=== PATIENT | female | born 1950 | race Caucasian/White ===

== ENCOUNTER 2019-07-22 17:44 | Inpatient (IN) | payer OTHER ==
--- NOTE | 2019-07-22 18:12 | PDOC ---
Attending Attestation - Resident Resident Name: Gibran Mosley - ED Attending Attestation I have performed the following: I have examined & evaluated the patient, The case was reviewed & discussed with the resident, I agree w/resident's findings & plan, Exceptions are as noted - HPI HPI: 07/22/19 18:49 this pt came with son from home because he found her diaphoretic and sl lethargic - Physicial Exam PE: 07/22/19 18:50 wnwd 69 yo female p/w tachycardia,hypotension head ncat eyes mateusz eomi neck no bruits lungs no wheezing,no rales cvs tachycardia abd protuberant skin warm and dry ext no deformities,no erythema neuro alert and conversant,Estonian speaking 07/22/19 20:19 - Medical Decision Making 07/22/19 18:52 HPI: pt has diaphoresis,chills, and confusion at home PMH HTN.psych 07/22/19 19:00 PSH tubal ligation last hospitalization was for psych issues Meds Seroquel, risperidone, hydrochlorothiazide, benztropine 07/22/19 20:02 rectal temp 99.1 07/22/19 20:03 ekg tachycardia =113 bpm 07/22/19 20:04 pt is afebrile,tachycardic w elevated TSH levels, will add free T4,T3 levels. normal lactic acid level, creatinine=2 07/22/19 20:19 07/22/19 21:28 pts vital signs improved with IV fluids, her blood pressure 137/76 , pulse ox= 98% on room air ,pulse has come down to 100 bpm 07/22/19 21:34 Diff Diagnosis: includes dehydration,hyperthyroidism / pt admitted 07/22/19 22:34
[2019-07-22] MEDS ORDERED: SODIUM CHLORIDE 0.9% 500 ML INFUS.BAG IV ONE (18:37)
[2019-07-22] MEDS ORDERED: SODIUM CHLORIDE 1,000 ML IV STA ×2 (19:08→21:09)
[2019-07-22 19:11] LABS: BASO % 0.7 % (0-2.0); EOS % 0.1 % (0-4.5); HEMATOCRIT 45.4 % (32.4-45.2); HEMOGLOBIN 14.9 GM/dL (10.7-15.3); LYMPH % 13.9 % (8-40); MCHC 32.9 g/dl (32.0-36.0); MEAN CELL VOLUME 88.2 fl (80-96); MEAN PLT VOLUME 9.3 fl (7.5-11.1); MONO % 8.9 % (3.8-10.2); NEUT % 76.4 % (42.8-82.8); PLATELET COUNT 264 K/MM3 (134-434); RBC 5.14 M/mm3 (3.60-5.2); RDW 13.8 % (11.6-15.6); WHITE BLOOD COUNT 11.1 K/mm3 (4.0-10.0)
[2019-07-22 19:41] LABS: INR 1.04 (0.83-1.09); PROTHROMBIN TIME (PATIENT) 12.3 SEC (9.7-13.0)
[2019-07-22 19:44] LABS: ACTIVATED PTT 32.4 SECONDS (25.2-36.5); MAGNESIUM 2.1 mg/dL (1.8-2.4); PHOSPHOROUS 3.1 mg/dL (2.5-4.9)
[2019-07-22 19:53] LABS: ALBUMIN 4.2 g/dl (3.4-5.0); BILIRUBIN,TOTAL 0.4 mg/dL (0.2-1); CALCIUM 9.9 mg/dL (8.5-10.1); POTASSIUM 5.6 mmol/L (3.5-5.1); TOT PROT 8.2 g/dl (6.4-8.2)
--- NOTE | 2019-07-22 19:58 | PDOC ---
History of Present Illness - General Chief Complaint: Lethargy Stated Complaint: HYPERGLYCEMIA Time Seen by Provider: 07/22/19 18:08 History Source: Patient Exam Limitations: No Limitations - History of Present Illness Initial Comments: 07/22/19 19:56 HPI: 69yo F with PMH HTN and psychiatric illess presenting 1hour after transient episode of extreme diaphoresis / weakness / visual disturbance that resolved spontaneously. Patient has experienced one similar episode of these symptoms approximately 4 months ago. EMS was called, BP was normal and patient asymptomatic on their arrival so she did not present to the ED. Today, she was found to have a BGM 189, tachycardia, and hypotension. Her symptoms had largely resolved by the time EMS arrived. Her son reports that she was profusely diaphoretic and soaked through her shirt. Patient reports her hair is dry, she has been gaining weight, and feels cold all the time. Denies any recent travel, illness, CP, SOB, fever, chills, pain, weakness, urinary symptoms, changes in BMs, no bloody or dark BMs, no numbness or tingle. Son who was with pt at time of episode says she knew who she was and where she was but looked off in her eyes - only noted the diaphoresis. Never lost consciousness or had facial muscle changes. All: Flagyl > hives Meds: -Rispiridone -Seroquel -Hydrochlorothyazide -Bcomplex -Benztropine -Paxil -MVI PMH: as above PSH: remote hysterectomy SHx: denies smoking / etoh / illicits Past History - Travel Traveled outside of the country in the last 30 days: No Close contact w/someone who was outside of country & ill: No - Past Medical History Allergies/Adverse Reactions: Allergies Allergy/AdvReac Type Severity Reaction Status Date / Time metronidazole [From Flagyl] Allergy Verified 07/22/19 17:55 Home Medications: Ambulatory Orders Hydrochlorothiazide [Hctz -] 25 mg PO DAILY 07/22/19 Quetiapine Fumarate [Quetiapine Fumarate ER] 50 mg PO DAILY 07/22/19 Risperidone [Risperdal] 3 mg PO DAILY 07/22/19 Benztropine Mesylate 1 mg PO DAILY 07/23/19 COPD: No Diabetes: Yes HTN: Yes Psychiatric Problems: Yes (DEPRESSION) - Suicide/Smoking/Psychosocial Hx Smoking History: Never smoked Information on smoking cessation initiated: No Hx Alcohol Use: No Drug/Substance Use Hx: No Review of Systems - Review of Systems Able to Perform ROS?: Yes Is the patient limited Guyanese proficient: Yes Constitutional: Yes: See HPI, Diaphoresis, Weakness. No: Chills, Fever, Malaise , Night Sweats, Weight Stable HEENTM: Yes: See HPI, Blurred Vision. No: Nose Congestion, Hearing Loss, Throat Pain, Throat Swelling, Mouth Pain Respiratory: No: Cough, Shortness of Breath, Wheezing, Hemoptysis Cardiac (ROS): No: Chest Pain, Edema, Irregular Heart Rate, Palpitations, Syncope, Chest Tightness ABD/GI: No: Blood Streaked Bowels, Constipated, Diarrhea, Nausea, Poor Appetite , Poor Fluid Intake, Vomiting, Tarry Stools : No: Burning, Dysuria, Discharge, Frequency, Pain Musculoskeletal: No: Back Pain, Joint Pain, Muscle Pain, Muscle Weakness Integumentary: No: Bruising, Erythema, Pruritus, Rash Neurological: No: Headache, Numbness, Tingling, Weakness Endocrine: Yes: See HPI, Excessive Sweating, Flushing, Intolerance to Cold, Increased Thirst, Unexplained Weight Gain, Change in Weight. No: Increased Urine Hematologic/Lymphatic: No: Anemia, Blood Clots, Easy Bleeding, Easy Bruising All Other Systems: Reviewed and Negative *Physical Exam - Vital Signs Last Vital Signs Temp Pulse Resp BP Pulse Ox 99.3 F 111 H 18 90/55 L 99 07/22/19 18:34 07/22/19 18:34 07/22/19 18:34 07/22/19 18:34 07/22/19 18:34 - Physical Exam Comments: 07/22/19 20:53 Vitals reviewed, notable for hypotension and tachycardia, patient afebrile orally and rectally Gen: obese woman, laying in bed, no acute distress, cooperative HEENT: NCAT, EOMI, MMM, trachea midline, normal morphologies CV: RRR, nl s1/s2, no murmurs appreciated Pulm: CTABL, normal work of breathing, no wheezes / rales / rhonchi Abd: Soft, nontender, nondistended, obese Ext: Cool, good pulses radial and PT, no clubbing / cyanosis / edema Neuro: alert and oriented, CN 2-12 grossly intact, MAEE, normal gait ED Treatment Course - LABORATORY CBC & Chemistry Diagram: 07/23/19 06:05 07/23/19 06:05 - ADDITIONAL ORDERS Additional order review: Laboratory Results 07/22/19 07/22/19 07/22/19 18:49 18:49 18:49 PT with INR INR PTT (Actin FS) Sodium 137 Potassium 5.6 H Chloride 100 Carbon Dioxide 26 Anion Gap 11 BUN 16.0 Creatinine 2.0 H Est GFR (CKD-EPI)AfAm 28.80 Est GFR (CKD-EPI)NonAf 24.85 POC Glucometer Random Glucose 132 H Lactic Acid 1.8 Calcium 9.9 Phosphorus 3.1 Magnesium 2.1 Total Bilirubin 0.4 AST 126 H ALT 203 H Alkaline Phosphatase 88 Troponin I Total Protein 8.2 Albumin 4.2 TSH 7.17 H 07/22/19 07/22/19 07/22/19 18:49 18:49 18:09 PT with INR 12.30 INR 1.04 PTT (Actin FS) 32.4 Sodium Potassium Chloride Carbon Dioxide Anion Gap BUN Creatinine Est GFR (CKD-EPI)AfAm Est GFR (CKD-EPI)NonAf POC Glucometer 145 Random Glucose Lactic Acid Calcium Phosphorus Magnesium Total Bilirubin AST ALT Alkaline Phosphatase Troponin I < 0.02 Total Protein Albumin TSH 07/22/19 07/22/19 18:49 18:09 RBC 5.14 MCV 88.2 MCHC 32.9 RDW 13.8 MPV 9.3 Neutrophils % 76.4 Lymphocytes % 13.9 Monocytes % 8.9 Eosinophils % 0.1 Basophils % 0.7 POC Glucometer 145 - RADIOLOGY Radiology Studies Ordered: Category Date Time Status CHEST X-RAY PORTABLE* [RAD] Stat Radiology 07/22/19 18:34 Taken - Medications Given in the ED: ED Medications Discontinued Medications Generic Name Dose Route Start Last Admin Trade Name Freq PRN Reason Stop Dose Admin Sodium Chloride 1,000 ml 07/22/19 18:37 07/22/19 19:06 Normal Saline - IV 07/22/19 18:38 1,000 ml ONCE ONE Administration Medical Decision Making - Medical Decision Making 07/22/19 19:45 69yo F with PMH HTN and psychiatric illess presenting 1hour after transient episode of extreme diaphoresis / weakness / visual disturbance that resolved spontaneously. History notable for symptoms of hypothyroidism and two episodes of an apparent sympathetic surge. Vitals tachycardic and hypotensive on arrival , afebrile (rectal). Patient asymptomatic in the department. Exam notable for cool extremities. Concerning for unexplained sympathetic surge, undiagnosed ? hypothyroidism, diabetes (Glu 189), r/o ACS, electrolytes, dehydration, symptoms of hypotension. Patient and family requesting referral to PCP and endocrine in [facility] due to close proximity to home. -Sepsis order set -Starting with 1L IVF given unclear cardiac history -CXR, EKG -TSH (will reflex T3/T4 if necessary) -Rispiridone, Benztropine levels 07/22/19 20:05 -EKG with tachycardia, normal axis, normal intervals, no peaked T waves, no ischemic changes -Portable CXR with ?mediastinum, patient stable enough for PA/LAT 07/22/19 21:00 -No leukocytosis or anemia -K elevated to 5.6 (patient asymptomatic, EKG normal, IVF running) -NANCY vs CKD with 2.0Cr - patient with no known renal Hx -TSH 7.17 - T3 T4 added on -Additional L bolus ordered -Dispo planning - likely admit for NANCY, hypothyroidism, ?dehydration 07/22/19 21:41 -Repeat pressure 137/76, HR 100 after 1L IVF -Pt endorsed to Hospitalist team Dispo: Med/Surg *DC/Admit/Observation/Transfer Diagnosis at time of Disposition: NANCY (acute kidney injury) Hypothyroidism Qualifiers: Hypothyroidism type: unspecified Qualified Code(s): E03.9 - Hypothyroidism, unspecified - Discharge Dispostion Condition at time of disposition: Guarded - Referrals - Patient Instructions - Post Discharge Activity
[2019-07-22 20:14] LABS: EPI CELLS 7.2 /HPF (0-5/HPF); HYALINE CASTS 108 /lpf (0-8); URINE APPEARANCE TURBID; URINE BACTERIA 1807.1 /hpf (NEGATIVE); URINE BILIRUBIN 1+ (NEGATIVE); URINE COLOR DK YELLOW; URINE GLUCOSE (UA) NEGATIVE (NEGATIVE); URINE KETONE TRACE (NEGATIVE); URINE LEUK ESTERASE 1+ (NEGATIVE); URINE NITRITE NEGATIVE (NEGATIVE); URINE PROTEIN 2+ (NEGATIVE); URINE UROBILINOGEN 0.2 mg/dL (0.2-1.0); URINE WBC 92 /hpf (0-5)
[2019-07-22 20:32] LABS: URINE RBC 0-4 /hpf (0-4)
--- NOTE | 2019-07-22 22:34 | HP ---
CHIEF COMPLAINT: transient diaphoresis and autonomic symptoms PCP: None HISTORY OF PRESENT ILLNESS: relatives as historians 69 y/o Female with PMH of HTN and schizophrenia who presented to the ED because of episodes of extreme diaphoresis, weakness, visual changes (seeing black and white spots), confusion, and cold extremities that last for a few then resolves. As per son, 4 months ago, she experienced a similar phenomenon that resolved in the EMS resulting in her not coming to the ED. However today, the EMS found her blood glucose to be 189, tachycardic, hypotensive so they brought her to the ED despite symptom resolution.Pt endorsed weight gain, hair thinning , but no brittle nails. Pt admits to recently dieting so she has not been eating alot nor drinking alot of water. Pt denied any change in headache, SOB, chest pain, numbness and tingling during episode. Pt also denied change in appetite, bowel movement and no recent change in her medications. Pt endorsed some abdominal pain in the suprapubic region. ER course was notable for: (1) 3 boluses of NS for the hypotension (2)EKg significant only for tachycardia (3) CXR, UA positive for UTI 2+protein, 1+ jorge a, 1+ leukocyte est, 92 WBC Recent Travel: None PAST MEDICAL HISTORY: as noted above PAST SURGICAL HISTORY: Tubal ligation Social History: Smoking: year ago but alot ( son remembers her always with a cigarette in hand) Alcohol:denies Drugs: denies Allergies metronidazole [From Flagyl] Allergy (Verified 07/22/19 17:55) HOME MEDICATIONS: Home Medications Medication Instructions Recorded Hydrochlorothiazide [Hctz -] 25 mg PO DAILY 07/22/19 Quetiapine Fumarate [Quetiapine 50 mg PO 07/22/19 Fumarate ER] Risperidone [Risperdal] 3 mg PO 07/22/19 REVIEW OF SYSTEMS CONSTITUTIONAL: weight gain Absent: fever, chills, diaphoresis, generalized weakness, malaise, loss of appetite, HEENT: visual changes Absent: rhinorrhea, nasal congestion, throat pain, throat swelling, difficulty swallowing, mouth swelling, ear pain, eye pain, CARDIOVASCULAR: Absent: chest pain, syncope, palpitations, irregular heart rate, lightheadedness , peripheral edema RESPIRATORY: Absent: cough, shortness of breath, dyspnea with exertion, orthopnea, wheezing, stridor, hemoptysis GASTROINTESTINAL:abdominal pain Absent: , abdominal distension, nausea, vomiting, diarrhea, constipation, melena , hematochezia GENITOURINARY: Absent: dysuria, frequency, urgency, hesitancy, hematuria, flank pain, genital pain MUSCULOSKELETAL: Absent: myalgia, arthralgia, joint swelling, back pain, neck pain SKIN: hyper and hypo pigmented skin on face and arms Absent: rash, itching, pallor HEMATOLOGIC/IMMUNOLOGIC: Absent: easy bleeding, easy bruising, lymphadenopathy, frequent infections ENDOCRINE: Absent: unexplained weight gain, unexplained weight loss, heat intolerance, cold intolerance NEUROLOGIC: Absent: headache, focal weakness or paresthesias, dizziness, unsteady gait, seizure, mental status changes, bladder or bowel incontinence PSYCHIATRIC: Absent: anxiety, depression, suicidal or homicidal ideation, hallucinations. PHYSICAL EXAMINATION Vital Signs - 24 hr 07/22/19 07/22/19 07/22/19 17:48 18:20 18:34 Temperature 97.4 F L 98.1 F 99.3 F Pulse Rate 117 H 112 H Pulse Rate [ 111 H 111 H Apical] Respiratory 18 20 18 Rate Blood Pressure 89/49 L Blood Pressure 90/55 L 90/55 L [Left Arm] O2 Sat by Pulse 99 99 99 Oximetry (%) 07/22/19 07/22/19 19:15 20:03 Temperature 99.0 F Pulse Rate Pulse Rate [ 111 H 104 H Apical] Respiratory 22 H 19 Rate Blood Pressure Blood Pressure 84/57 L 97/62 [Left Arm] O2 Sat by Pulse 98 99 Oximetry (%) GENERAL: Awake, alert, and fully oriented, in no acute distress. HEAD: Normal with no signs of trauma. EYES: Pupils equal, round and reactive to light, extraocular movements intact, sclera anicteric, conjunctiva clear. No lid lag. EARS, NOSE, THROAT: Ears normal, nares patent, oropharynx clear without exudates. Moist mucous membranes. NECK: Normal range of motion, supple without lymphadenopathy, JVD, or masses. LUNGS: Breath sounds equal, clear to auscultation bilaterally. No wheezes, and no crackles. No accessory muscle use. HEART: Regular rate and rhythm, normal S1 and S2 without murmur, rub or gallop. ABDOMEN: Soft, nontender, not distended, normoactive bowel sounds, no guarding, no rebound, no masses. No hepatomegaly or splenomegaly. MUSCULOSKELETAL: Normal range of motion at all joints. No bony deformities or tenderness. No CVA tenderness. UPPER EXTREMITIES: 2+ pulses, warm, well-perfused. No cyanosis. No clubbing. No peripheral edema. LOWER EXTREMITIES: 2+ pulses, warm, well-perfused. No calf tenderness. No peripheral edema. NEUROLOGICAL: Cranial nerves II-XII intact. Normal speech. Normal gait. PSYCHIATRIC: Cooperative. Good eye contact. Appropriate mood and affect. SKIN: Warm, dry, normal turgor, no rashes or lesions noted, normal capillary refill. Laboratory Results - last 24 hr 07/22/19 07/22/19 07/22/19 18:09 18:49 18:49 WBC RBC Hgb Hct MCV MCH MCHC RDW Plt Count MPV Absolute Neuts (auto) Neutrophils % Lymphocytes % Monocytes % Eosinophils % Basophils % Nucleated RBC % PT with INR 12.30 INR 1.04 PTT (Actin FS) 32.4 Sodium Potassium Chloride Carbon Dioxide Anion Gap BUN Creatinine Est GFR (CKD-EPI)AfAm Est GFR (CKD-EPI)NonAf POC Glucometer 145 Random Glucose Lactic Acid Calcium Phosphorus Magnesium Total Bilirubin AST ALT Alkaline Phosphatase Troponin I < 0.02 Total Protein Albumin TSH Resin T3 Uptake Urine Color Urine Appearance Urine pH Ur Specific [place] Urine Protein Urine Glucose (UA) Urine Ketones Urine Blood Urine Nitrite Urine Bilirubin Urine Urobilinogen Ur Leukocyte Esterase Urine WBC (Auto) Urine RBC (Auto) Urine Casts (Auto) U Pathogenic Cast Auto U Epithel Cells (Auto) Urine Bacteria (Auto) 07/22/19 07/22/19 07/22/19 18:49 18:49 18:49 WBC 11.1 H RBC 5.14 Hgb 14.9 Hct 45.4 H MCV 88.2 MCH 29.0 MCHC 32.9 RDW 13.8 Plt Count 264 MPV 9.3 Absolute Neuts (auto) 8.5 H Neutrophils % 76.4 Lymphocytes % 13.9 Monocytes % 8.9 Eosinophils % 0.1 Basophils % 0.7 Nucleated RBC % 0 PT with INR INR PTT (Actin FS) Sodium 137 Potassium 5.6 H Chloride 100 Carbon Dioxide 26 Anion Gap 11 BUN 16.0 Creatinine 2.0 H Est GFR (CKD-EPI)AfAm 28.80 Est GFR (CKD-EPI)NonAf 24.85 POC Glucometer Random Glucose 132 H Lactic Acid 1.8 Calcium 9.9 Phosphorus Magnesium Total Bilirubin 0.4 AST 126 H ALT 203 H Alkaline Phosphatase 88 Troponin I Total Protein 8.2 Albumin 4.2 TSH 7.17 H Resin T3 Uptake Urine Color Urine Appearance Urine pH Ur Specific [place] Urine Protein Urine Glucose (UA) Urine Ketones Urine Blood Urine Nitrite Urine Bilirubin Urine Urobilinogen Ur Leukocyte Esterase Urine WBC (Auto) Urine RBC (Auto) Urine Casts (Auto) U Pathogenic Cast Auto U Epithel Cells (Auto) Urine Bacteria (Auto) 07/22/19 07/22/19 18:49 19:40 WBC RBC Hgb Hct MCV MCH MCHC RDW Plt Count MPV Absolute Neuts (auto) Neutrophils % Lymphocytes % Monocytes % Eosinophils % Basophils % Nucleated RBC % PT with INR INR PTT (Actin FS) Sodium Potassium Chloride Carbon Dioxide Anion Gap BUN Creatinine Est GFR (CKD-EPI)AfAm Est GFR (CKD-EPI)NonAf POC Glucometer Random Glucose Lactic Acid Calcium Phosphorus 3.1 Magnesium 2.1 Total Bilirubin AST ALT Alkaline Phosphatase Troponin I Total Protein Albumin TSH Resin T3 Uptake 30.5 Urine Color Dk yellow Urine Appearance Turbid Urine pH 5.0 Ur Specific [place] 1.025 Urine Protein 2+ H Urine Glucose (UA) Negative Urine Ketones Trace H Urine Blood Negative Urine Nitrite Negative Urine Bilirubin 1+ H Urine Urobilinogen 0.2 Ur Leukocyte Esterase 1+ H Urine WBC (Auto) 92 Urine RBC (Auto) 0-4 Urine Casts (Auto) 108 U Pathogenic Cast Auto Hyaline cast= few U Epithel Cells (Auto) 7.2 Urine Bacteria (Auto) 1807.1 ASSESSMENT/PLAN: 69 y/o Female with PMH of HTN and schizophrenia who presented to the ED because of episodes of extreme diaphoresis, weakness, visual changes (seeing black and white spots), confusion, and cold extremities that last for a few then resolves benztropine and risperidone levels pending Thyroid abnormality (hypothyroid? thyroiditis? central ?) TSH 7.17 and total T4 15.2 resin uptake T3 30.5. thyroid US ordered repeat free T4& T3, total T4 to reevaluate Sepsis poss 2/2 UTI UA +, urine culture ordered, blood cultures ordered WBC 11.1, HR 100, BP 137/76 s/p 3 boluses No abx at this time since asymptomatic CXR no acute pathology CKD ? Cr 2.o Bun 16. Pt nor family recalls any history of kidney disease NS @ 75cc/hr Holding hydrochlorothiazide for now Renal US ordered Transaminitis AST 126, ALT 203, ALP 88 Tbil 0.4 RUQ US ordered holding psych meds until med rec DVT Hep subQ Visit type - Emergency Visit Emergency Visit: Yes ED Registration Date: 07/22/19 Care time: The patient presented to the Emergency Department on the above date and was hospitalized for further evaluation of their emergent condition. - New Patient This patient is new to me today: Yes Date on this admission: 07/22/19 - Critical Care Critical Care patient: No ATTENDING PHYSICIAN STATEMENT I saw and evaluated the patient. I reviewed the resident's note and discussed the case with the resident. I agree with the resident's findings and plan as documented. SUBJECTIVE: OBJECTIVE: ASSESSMENT AND PLAN:
--- NOTE | 2019-07-22 23:15 | PN ---
Teaching Attending Note Name of Resident: Peace Scales ATTENDING PHYSICIAN STATEMENT I saw and evaluated the patient. I reviewed the resident's note and discussed the case with the resident. I agree with the resident's findings and plan as documented. SUBJECTIVE: 69 y/o Female with PMH of HTN and schizophrenia, gerd, htn presented with episodes of diaphoresis, weakness, thin hair, hot flashes for several days. She reports having gained about 30-40 lbs recently. Denied any nausea, vomiting, diarrhea. OBJECTIVE: Last Vital Signs Temp Pulse Resp BP Pulse Ox 99.0 F 96 H 16 143/70 99 07/22/19 20:03 07/22/19 22:17 07/22/19 22:17 07/22/19 22:17 07/22/19 22:17 gen -nad, nontoxic appearing heent -at, nc, clear sclera neck supple, thyroid nontender, not enlarged, no nodules palpated cv-s1+s2+rrr chest clear abdomen -soft, BS in 4 quadrants, ruq tenderness, +rossi sign, no rebound tenderness ext- no pedal edema appreciated Abnormal Lab Results 07/22/19 07/22/19 07/22/19 18:49 18:49 19:40 WBC 11.1 H Hct 45.4 H Absolute Neuts (auto) 8.5 H Potassium 5.6 H Creatinine 2.0 H Random Glucose 132 H AST 126 H ALT 203 H TSH 7.17 H Urine Protein 2+ H Urine Ketones Trace H Urine Bilirubin 1+ H Ur Leukocyte Esterase 1+ H ekg showed sinus tachycardia ASSESSMENT AND PLAN: generalized weakness diaphoresis with tight total t4 suggestive of hyeprthyroidism. High TSH suggests TSH induced hyperthyroidism. Total t4 not seen in lab value however discussed with chemistry lab and reported total t4 of 15.2mg/dl. Would repeat thyroid studies, tsh may also be acute phase reactant. Should also r/o illegal substance abuse (i.e. cocaine, methamphetamine). R/o pheochromocytoma. -send tsh, total, free t4, free t3 -thyroid ultrasound -propanalol prn for symptom management -if high repeat tsh, t4, would order brain MRI to evaluate for pituitary tumor -send urine VMA -urine toxicology screen -ck #History of schizophrenia - noted to be on 2 antipsychotics in med list- risperdal and seroquel -verify with pharmacy if actually on 2 different antipsychotics #Leukocytosis - monitor #GERD -start protonix #Transaminitis -liver u/s -etoh level -tylenol level -viral hepatitis panel -trend hepatic function panel dvt ppx
[2019-07-22] MEDS: SODIUM CHLORIDE 1,000 ML IV SCH (23:29)
[2019-07-23 06:24] LABS: BASO % 1.2 % (0-2.0); EOS % 0.4 % (0-4.5); HEMATOCRIT 39.6 % (32.4-45.2); HEMOGLOBIN 13.4 GM/dL (10.7-15.3); LYMPH % 36.2 % (8-40); MCH 29.6 pg (25.7-33.7); MCHC 33.7 g/dl (32.0-36.0); MEAN CELL VOLUME 87.9 fl (80-96); MEAN PLT VOLUME 8.8 fl (7.5-11.1); MONO % 12.3 % (3.8-10.2); NEUT % 49.9 % (42.8-82.8); PLATELET COUNT 235 K/MM3 (134-434); RBC 4.51 M/mm3 (3.60-5.2); RDW 13.7 % (11.6-15.6)
[2019-07-23] MEDS ORDERED: HEPARIN NA (PORCINE) 5,000 UNITS/ML 1ML VIAL ONE (06:26)
[2019-07-23] MEDS: HEPARIN NA (PORCINE) 5,000 UNITS/ML 1ML VIAL SQ SCH ×3 (06:39→22:44)
[2019-07-23 06:51] LABS: ALBUMIN 3.6 g/dl (3.4-5.0); BILIRUBIN,TOTAL 0.4 mg/dL (0.2-1); CREATININE 1.1 mg/dL (0.55-1.3); PHOSPHOROUS 3.4 mg/dL (2.5-4.9); POTASSIUM 3.4 mmol/L (3.5-5.1)
[2019-07-23] MEDS ORDERED: PANTOPRAZOLE SODIUM 40 MG VIAL ONE (10:04)
[2019-07-23] MEDS: PANTOPRAZOLE SODIUM 40 MG VIAL IVPUSH SCH (10:22)
--- NOTE | 2019-07-23 11:14 | PN ---
Progress Note (short form) - Note Progress Note: Subjective: No fever or chills. reports no abd pain, and no dysuria. no N/V. reports feeling sweaty, and weak all over, with darkening in her vision while walking and shopping in store, sx imporved when she sat in care and reclined . no N/V, no vertigo. episode like this happened a month ago and 2 months ago as well . she rerpots good po intake. and no change in meds Objective: Vital Signs: Last Vital Signs Temp Pulse Resp BP Pulse Ox 97.1 F L 72 18 118/66 98 07/23/19 09:22 07/23/19 09:22 07/23/19 07:30 07/23/19 09:22 07/23/19 09:22 Laboratory Results - last 24 hr 07/22/19 07/22/19 07/22/19 18:09 18:49 18:49 WBC RBC Hgb Hct MCV MCH MCHC RDW Plt Count MPV Absolute Neuts (auto) Neutrophils % Lymphocytes % Monocytes % Eosinophils % Basophils % Nucleated RBC % PT with INR 12.30 INR 1.04 PTT (Actin FS) 32.4 Sodium Potassium Chloride Carbon Dioxide Anion Gap BUN Creatinine Est GFR (CKD-EPI)AfAm Est GFR (CKD-EPI)NonAf POC Glucometer 145 Random Glucose Lactic Acid Calcium Phosphorus Magnesium Total Bilirubin AST ALT Alkaline Phosphatase Troponin I < 0.02 Total Protein Albumin TSH Free T4 Resin T3 Uptake Urine Color Urine Appearance Urine pH Ur Specific [place] Urine Protein Urine Glucose (UA) Urine Ketones Urine Blood Urine Nitrite Urine Bilirubin Urine Urobilinogen Ur Leukocyte Esterase Urine WBC (Auto) Urine RBC (Auto) Urine Casts (Auto) U Pathogenic Cast Auto U Epithel Cells (Auto) Urine Bacteria (Auto) 07/22/19 07/22/19 07/22/19 18:49 18:49 18:49 WBC 11.1 H RBC 5.14 Hgb 14.9 Hct 45.4 H MCV 88.2 MCH 29.0 MCHC 32.9 RDW 13.8 Plt Count 264 MPV 9.3 Absolute Neuts (auto) 8.5 H Neutrophils % 76.4 Lymphocytes % 13.9 Monocytes % 8.9 Eosinophils % 0.1 Basophils % 0.7 Nucleated RBC % 0 PT with INR INR PTT (Actin FS) Sodium 137 Potassium 5.6 H Chloride 100 Carbon Dioxide 26 Anion Gap 11 BUN 16.0 Creatinine 2.0 H Est GFR (CKD-EPI)AfAm 28.80 Est GFR (CKD-EPI)NonAf 24.85 POC Glucometer Random Glucose 132 H Lactic Acid 1.8 Calcium 9.9 Phosphorus Magnesium Total Bilirubin 0.4 AST 126 H ALT 203 H Alkaline Phosphatase 88 Troponin I Total Protein 8.2 Albumin 4.2 TSH 7.17 H Free T4 Resin T3 Uptake Urine Color Urine Appearance Urine pH Ur Specific [place] Urine Protein Urine Glucose (UA) Urine Ketones Urine Blood Urine Nitrite Urine Bilirubin Urine Urobilinogen Ur Leukocyte Esterase Urine WBC (Auto) Urine RBC (Auto) Urine Casts (Auto) U Pathogenic Cast Auto U Epithel Cells (Auto) Urine Bacteria (Auto) 07/22/19 07/22/19 07/22/19 18:49 19:40 23:32 WBC RBC Hgb Hct MCV MCH MCHC RDW Plt Count MPV Absolute Neuts (auto) Neutrophils % Lymphocytes % Monocytes % Eosinophils % Basophils % Nucleated RBC % PT with INR INR PTT (Actin FS) Sodium Potassium Chloride Carbon Dioxide Anion Gap BUN Creatinine Est GFR (CKD-EPI)AfAm Est GFR (CKD-EPI)NonAf POC Glucometer Random Glucose Lactic Acid 1.0 Calcium Phosphorus 3.1 Magnesium 2.1 Total Bilirubin AST ALT Alkaline Phosphatase Troponin I Total Protein Albumin TSH Free T4 Resin T3 Uptake 30.5 Urine Color Dk yellow Urine Appearance Turbid Urine pH 5.0 Ur Specific [place] 1.025 Urine Protein 2+ H Urine Glucose (UA) Negative Urine Ketones Trace H Urine Blood Negative Urine Nitrite Negative Urine Bilirubin 1+ H Urine Urobilinogen 0.2 Ur Leukocyte Esterase 1+ H Urine WBC (Auto) 92 Urine RBC (Auto) 0-4 Urine Casts (Auto) 108 U Pathogenic Cast Auto Hyaline cast= few U Epithel Cells (Auto) 7.2 Urine Bacteria (Auto) 1807.1 07/23/19 07/23/19 06:05 06:05 WBC 10.0 RBC 4.51 Hgb 13.4 Hct 39.6 MCV 87.9 MCH 29.6 MCHC 33.7 RDW 13.7 Plt Count 235 MPV 8.8 Absolute Neuts (auto) 5.0 Neutrophils % 49.9 D Lymphocytes % 36.2 D Monocytes % 12.3 H Eosinophils % 0.4 D Basophils % 1.2 Nucleated RBC % 0 PT with INR INR PTT (Actin FS) Sodium 139 Potassium 3.4 L Chloride 103 Carbon Dioxide 27 Anion Gap 8 BUN 16.0 Creatinine 1.1 Est GFR (CKD-EPI)AfAm 59.32 Est GFR (CKD-EPI)NonAf 51.18 POC Glucometer Random Glucose 107 H Lactic Acid Calcium 9.0 Phosphorus 3.4 Magnesium 2.0 Total Bilirubin 0.4 AST 70 H ALT 155 H Alkaline Phosphatase 76 Troponin I Total Protein 7.0 Albumin 3.6 TSH 3.52 Free T4 1.38 Resin T3 Uptake Urine Color Urine Appearance Urine pH Ur Specific [place] Urine Protein Urine Glucose (UA) Urine Ketones Urine Blood Urine Nitrite Urine Bilirubin Urine Urobilinogen Ur Leukocyte Esterase Urine WBC (Auto) Urine RBC (Auto) Urine Casts (Auto) U Pathogenic Cast Auto U Epithel Cells (Auto) Urine Bacteria (Auto) Physical Exam: NAD. AAOx3. MMM, EOMI. no LAP inneck. thyroid is not enlarged. CV: RRR, No MRG Lungs: CTAB abd: soft, TTP in perimbilical area and RUQ with no rebound tenderness or guarding . NL BS Neuro: EOMI, round equal pupils, tongeua t mid line. strength 5/5 in upper and lower extremities proximally and distally jose carlos Halpike neg Cxray, US reviewed. Assessment/Plan: 69 y/o lady with h/o schizophrenia, HTN, HLP, GERD, who presented with near syncope and was found to have NANCY, and gall bladder wall thickening 1- Near syncope: likely vasovagal in nature. also volume depleted - IVF - tele . r/o arrhythmias. - echo 2- NANCY : due to prerenal azotemia. resolved with IVF hyperkalemia resolved , now hypokalemia, will repeat K hold HCTZ . monitor BP 3- Gall bladder sludge with thickened wall . abd tenderness. slightly elevated ALT/AST . No signs of obstruction US reviewed . has fatty liver, ? cholecytitis - IVF - Surgical consult - give unasyn for now, if cholecystitis is not strongly suspected by Sx , will stop 4- asymptomatic pyuria: will not treat 5- TFTs were initially elevated ( TSH of 7.7 and FT4 15 per lab ) . repeat is nl. no signs hyper or hypothyroidism. - will repeat as out pt 6- H/o Schizophrenia: resume home meds DVT Px: heparin sq Visit type - Emergency Visit Emergency Visit: Yes ED Registration Date: 07/22/19 Care time: The patient presented to the Emergency Department on the above date and was hospitalized for further evaluation of their emergent condition. - New Patient This patient is new to me today: Yes Date on this admission: 07/23/19 - Critical Care Critical Care patient: No
[2019-07-23] MEDS: risperiDONE 1 MG TABLET (FP) PO SCH (11:44)
[2019-07-23] MEDS: BENZTROPINE MESYLATE 1 MG TABLET (FP) PO SCH (11:48)
[2019-07-23] MEDS: AMPICILLIN NA/SULBACTAM NA 3 GM in SODIUM CHLORIDE 100 ML IVPB SCH ×2 (13:30→18:50)
[2019-07-23] MEDS ORDERED: PT OWN MED DRAWER 7, Y5N ONE (15:59)
[2019-07-23] MEDS: SODIUM CHLORIDE 1,000 ML IV SCH (22:47)
[2019-07-23 23:24] LABS: COCAINE, UR NEGATIVE ng/ml (CUTOFF=300); OPIATES, URI NEGATIVE ng/ml (CUTOFF=300); PHENCYCLIDINE,URINE NEGATIVE ng/ml (CUTOFF=25); URINE AMPHETAMINES NEGATIVE ng/ml (CUTOFF=500); URINE BARBITURATES NEGATIVE ng/ml (CUTOFF=200); URINE BENZODIAZEPINES NEGATIVE ng/ml (CUTOFF=200)
[2019-07-24] MEDS: AMPICILLIN NA/SULBACTAM NA 3 GM in SODIUM CHLORIDE 100 ML IVPB SCH ×3 (03:30→17:10)
[2019-07-24 04:27] LABS: METHADONE, UR NEGATIVE ng/ml (CUTOFF=300)
[2019-07-24 04:59] VITALS: BMI 35.6
[2019-07-24] MEDS: HEPARIN NA (PORCINE) 5,000 UNITS/ML 1ML VIAL SQ SCH ×2 (06:19→13:42)
[2019-07-24 06:37] LABS: BASO % 0.8 % (0-2.0); EOS % 1.6 % (0-4.5); HEMATOCRIT 37.4 % (32.4-45.2); HEMOGLOBIN 12.6 GM/dL (10.7-15.3); LYMPH % 46.2 % (8-40); MCH 29.8 pg (25.7-33.7); MCHC 33.8 g/dl (32.0-36.0); MEAN CELL VOLUME 88.2 fl (80-96); MEAN PLT VOLUME 9.7 fl (7.5-11.1); MONO % 12.8 % (3.8-10.2); NEUT % 38.6 % (42.8-82.8); PLATELET COUNT 221 K/MM3 (134-434); RBC 4.24 M/mm3 (3.60-5.2); RDW 13.7 % (11.6-15.6); WHITE BLOOD COUNT 7.2 K/mm3 (4.0-10.0)
[2019-07-24 06:46] LABS: ALBUMIN 3.5 g/dl (3.4-5.0); BILIRUBIN,TOTAL 0.3 mg/dL (0.2-1); BLOOD UREA NITROGEN 18.6 mg/dL (7-18); CALCIUM 8.7 mg/dL (8.5-10.1); CREATININE 0.8 mg/dL (0.55-1.3); POTASSIUM 3.8 mmol/L (3.5-5.1); TOT PROT 6.8 g/dl (6.4-8.2)
--- NOTE | 2019-07-24 07:12 | EKG ---
Test Reason : Blood Pressure : / mmHG Vent. Rate : 113 BPM Atrial Rate : 113 BPM P-R Int : 152 ms QRS Dur : 084 ms QT Int : 332 ms P-R-T Axes : 060 032 032 degrees QTc Int : 455 ms SINUS TACHYCARDIA OTHERWISE NORMAL ECG NO PREVIOUS ECGS AVAILABLE Confirmed by CAROL WARE MD ([id number]) on 07/24/2019 7:12:04 AM Referred By: Confirmed By:CAROL WARE MD
--- NOTE | 2019-07-24 08:57 | PN ---
Teaching Attending Note Name of Resident: Juwan Maharaj ATTENDING PHYSICIAN STATEMENT I saw and evaluated the patient. I reviewed the resident's note and discussed the case with the resident. I agree with the resident's findings and plan as documented. SUBJECTIVE: No fever or chills. denies abd pain, no N?V. no diarrhea. does not have any dizziness. walked without any problem OBJECTIVE: NAD. AAOx3. MMM CV: RRR, No MRG Lungs: CTAB Abd: soft, TTP in RUQ, LUQ and epigastric area , no rebound tenderness or guarding . NL BS Cxray, US reviewed. Assessment/Plan: 69 y/o lady with h/o schizophrenia, HTN, HLP, GERD, who presented with near syncope and was found to have NANYC, and gall bladder wall thickening 1- Near syncope: likely vasovagal in nature. - will stop IVF today - tele - echo pending 2- NANCY : resolved 3- Gall bladder sludge with thickened wall . abd tenderness. slightly elevated ALT/AST could be due to fatty liver . No signs of obstruction - case was d/w Dr. Phelps yesterday . patient to be evaluated - IVF - cont unasyn for now, if cholecystitis is not strongly suspected by Sx , will stop 4- Asymptomatic pyuria: will not treat 5- TFTs were initially elevated , ? lab error. - will repeat as out pt 6- H/o Schizophrenia: resume home meds DVT Px: heparin sq dispo : if no surgical intervention is deemed necessary, will dc home later today, otherwise she stays
[2019-07-24] MEDS ORDERED: PNEUMOC 13-VAL CONJ-DIP CRM/PF 0.5 ML DISP.SYRIN IM ONE (09:00)
[2019-07-24] MEDS ORDERED: PT OWN MED DRAWER 7, Y5N ONE ×2 (09:14→16:54)
[2019-07-24] MEDS: risperiDONE 1 MG TABLET (FP) PO SCH (10:26)
[2019-07-24] MEDS: BENZTROPINE MESYLATE 1 MG TABLET (FP) PO SCH (10:26)
[2019-07-24] MEDS: PANTOPRAZOLE SODIUM 40 MG VIAL IVPUSH SCH (10:26)
[2019-07-24] MEDS ORDERED: metoPROLOL SUCCINATE 25 MG TAB.SR.24H (FP) PO SCH (16:15)
--- NOTE | 2019-07-24 16:53 | PN ---
Physical Exam: SUBJECTIVE: Patient seen and examined OBJECTIVE: Vital Signs Period Temp Pulse Resp BP Sys/Carbajal Pulse Ox Last 24 Hr 98.1 F-98.8 F 78-107 18-22 114-160/54-100 98-98 GENERAL: The patient is awake, alert, and fully oriented, in no acute distress. HEAD: Normal with no signs of trauma. EYES: PERRL, extraocular movements intact, sclera anicteric, conjunctiva clear. No ptosis. ENT: Ears normal, nares patent, oropharynx clear without exudates, moist mucous membranes. NECK: Trachea midline, full range of motion, supple. LUNGS: Breath sounds equal, clear to auscultation bilaterally, no wheezes, no crackles, no accessory muscle use. HEART: Regular rate and rhythm, S1, S2 without murmur, rub or gallop. ABDOMEN: Soft, nontender, nondistended, normoactive bowel sounds, no guarding, no rebound, no hepatosplenomegaly, no masses. EXTREMITIES: 2+ pulses, warm, well-perfused, no edema. NEUROLOGICAL: Cranial nerves II through XII grossly intact. Normal speech, gait not observed. PSYCH: Normal mood, normal affect. SKIN: Warm, dry, normal turgor, no rashes or lesions noted Laboratory Results - last 24 hr 07/23/19 07/23/19 07/24/19 16:52 20:25 05:20 WBC 7.2 RBC 4.24 Hgb 12.6 Hct 37.4 MCV 88.2 MCH 29.8 MCHC 33.8 RDW 13.7 Plt Count 221 MPV 9.7 D Absolute Neuts (auto) 2.8 Neutrophils % 38.6 L D Lymphocytes % 46.2 H D Monocytes % 12.8 H Eosinophils % 1.6 D Basophils % 0.8 Nucleated RBC % 0 Sodium Potassium 3.5 Chloride Carbon Dioxide Anion Gap BUN Creatinine Est GFR (CKD-EPI)AfAm Est GFR (CKD-EPI)NonAf Random Glucose Calcium Total Bilirubin AST ALT Alkaline Phosphatase Total Protein Albumin Lipase Opiates Screen Negative Methadone Screen Negative Barbiturate Screen Negative Phencyclidine Screen Negative Ur Amphetamines Screen Negative MDMA (Ecstasy) Screen Negative Benzodiazepines Screen Negative Cocaine Screen Negative U Marijuana (THC) Screen Negative 07/24/19 05:20 WBC RBC Hgb Hct MCV MCH MCHC RDW Plt Count MPV Absolute Neuts (auto) Neutrophils % Lymphocytes % Monocytes % Eosinophils % Basophils % Nucleated RBC % Sodium 142 Potassium 3.8 Chloride 107 Carbon Dioxide 28 Anion Gap 7 L BUN 18.6 H Creatinine 0.8 Est GFR (CKD-EPI)AfAm 87.18 Est GFR (CKD-EPI)NonAf 75.22 Random Glucose 106 Calcium 8.7 Total Bilirubin 0.3 AST 68 H ALT 144 H Alkaline Phosphatase 72 Total Protein 6.8 Albumin 3.5 Lipase 299 Opiates Screen Methadone Screen Barbiturate Screen Phencyclidine Screen Ur Amphetamines Screen MDMA (Ecstasy) Screen Benzodiazepines Screen Cocaine Screen U Marijuana (THC) Screen Active Medications Generic Name Dose Route Start Last Admin Trade Name Freq PRN Reason Stop Dose Admin Benztropine Mesylate 1 mg 07/23/19 11:15 07/24/19 10:26 Cogentin - PO 1 mg DAILY DUSTY Administration Heparin Sodium (Porcine) 5,000 unit 07/23/19 06:00 07/24/19 13:42 Heparin - SQ 5,000 unit TID DUSTY Administration Hydrochlorothiazide 25 mg 07/25/19 10:00 Hctz - PO DAILY DUSTY Sodium Chloride 1,000 mls @ 75 mls/hr 07/22/19 22:45 07/23/19 22:47 Normal Saline - IV 75 mls/hr ASDIR DUSTY Administration Ampicillin Sodium/Sulbactam 100 mls @ 200 mls/hr 07/23/19 11:30 07/24/19 13: 42 Sodium 3 gm/ Sodium Chloride IVPB 200 mls/hr Q8H-IV DUSTY Administration Lisinopril 20 mg 07/25/19 10:00 Prinivil PO DAILY DUSTY Metoprolol Succinate 25 mg 07/24/19 16:15 07/24/19 16:45 Toprol Xl - PO 25 mg DAILY DUSTY Administration Pantoprazole Sodium 40 mg 07/23/19 10:00 07/24/19 10:26 Protonix Iv IVPUSH 40 mg DAILY DUSTY Administration Quetiapine Fumarate 50 mg 07/23/19 11:15 07/24/19 10:26 Seroquel Xr - PO 50 mg DAILY DUSTY Administration Risperidone 3 mg 07/23/19 11:15 07/24/19 10:26 Risperdal - PO 3 mg DAILY DUSTY Administration ASSESSMENT/PLAN: 69 y/o lady with h/o schizophrenia, HTN, HLP, GERD, who presented with near syncope and was found to have NANCY, and gall bladder wall thickening 1- Near syncope: likely vasovagal in nature. - will stop IVF today - tele - echo pending 2- ANNCY : resolved 3- Gall bladder sludge with thickened wall . abd tenderness. slightly elevated ALT/AST could be due to fatty liver . No signs of obstruction - case was d/w Dr. Phelps yesterday . patient to be evaluated - IVF - cont unasyn for now, if cholecystitis is not strongly suspected by Sx , will stop 4- Asymptomatic pyuria: will not treat 5- TFTs were initially elevated , ? lab error. - will repeat as out pt 6- H/o Schizophrenia: resume home meds DVT Px: heparin sq ATTENDING PHYSICIAN STATEMENT I saw and evaluated the patient. I reviewed the resident's note and discussed the case with the resident. I agree with the resident's findings and plan as documented. SUBJECTIVE: OBJECTIVE: ASSESSMENT AND PLAN:
--- NOTE | 2019-07-24 17:09 | ECHO ---
Name: VIDYA GALVEZ Exam:Adult Echocardiogram Study Date: 07/24/2019 11:13 AM Age: 69 yrs Reason For Study: evaluate valves Height: 65 in Weight: 212 lb BSA: 2.0 m2 MMode/2D Measurements & Calculations IVSd: 1.0 cm Ao root diam: 3.5 cm LVIDd: 4.8 cm LA dimension: 3.4 cm LVIDs: 3.2 cm ACS: 2.4 cm LVPWd: 0.74 cm IVSs: 1.4 cm LVPWs: 1.3 cm EDV(Teich): 108.3 ml ESV(Teich): 39.8 ml Doppler Measurements & Calculations MV E max tiot: 56.3 cm/sec Ao V2 max: 145.4 cm/sec MV A max tito: 112.5 cm/sec Ao max P.5 mmHg MV E/A: 0.50 TR max tito: 236.9 cm/sec PI end-d tito: 96.4 cm/sec TR max P.4 mmHg Med Peak E' Tito: 4.9 cm/sec Med E/e': 11.4 Lat Peak E' Tito: 6.4 cm/sec Lat E/e': 8.8 Procedure A complete two-dimensional transthoracic echocardiogram was performed (2D, M-mode, Doppler and color flow Doppler). Left Ventricle The left ventricle is normal in size. Left ventricular systolic function is normal. Ejection Fraction = 60- 65%. Grade I diastolic dysfunction, (abnormal relaxation pattern). Ratio E/E'= 11. No regional wall m otion abnormalities noted. Right Ventricle The right ventricle is normal size. The right ventricular systolic function is normal. Atria The left atrial size is normal. Right atrial size is normal. Mitral Valve There is mild mitral annular calcification. There is no mitral regurgitation noted. Tricuspid Valve The tricuspid valve is normal in structure and function. No tricuspid regurgitation. Aortic Valve The aortic valve is normal in structure and function. No aortic regurgitation is present. Pulmonic Valve The pulmonic valve is not well visualized. Great Vessels The aortic root is normal size. Pericardium/Pleura There is no pericardial effusion. Interpretation Summary The left ventricle is normal in size. Left ventricular systolic function is normal. No regional wall motion abnormalities noted. Ejection Fraction = 60-65%. Grade I diastolic dysfunction, (abnormal relaxation pattern). Ratio E/E'= 11 The right ventricular systolic function is normal. The left atrial size is normal. Right atrial size is normal. There is mild mitral annular calcification. No significant valvular regurgitations There is no pericardial effusion. José Miguel Stevenson MD 07/24/2019 05:09 PM
--- NOTE | 2019-07-24 17:59 | CONSULT ---
Consult Consult Specialty:: General Surgery Referred by:: Dr. Rodney Reason for Consultation:: gallbladder wall thickening - History of Present Illness Chief Complaint: sweating, weak; abdominal pain when sneezing History of Present Illness: 69yo obese F with HTN, GERD, schizophrenia ("depression" per pt), s/p hysterectomy for fibroids (per pt), was admitted few days ago to medicine for episode of diaphoresis, weakness, possible vasovagal episode. Initial chemistries were hemolyzed; on repeat, she was noted to have mildly elevated transaminases (decreasing), and US of RUQ showed hepatomegaly, fatty liver vs liver disease, gallbladder with no stones, a little sludge, and possible mild wall thickening, with no ductal dilation or pericholecystic fluid. Pt denies pain related to eating. No abdominal pain prior to coming to hospital, but in last 2 days, when she sneezes, she has some pain across her upper/mid abdomen. Not localized, no n/v, no diarrhea or constipation (last BM this morning), no fever or chills, no headache or dizziness. Tolerating diet here. Surgery was asked to assess. She is seen and examined in bed. She understands and speaks enough [place]ic to convey history and cooperate with exam. She states she is feeling better overall. No abdominal pain right now. Pain with sneezing only in last 2 days, at hospital. WBC normal, ALT/AST mildly elevated, hep panel pending. Denies urinary symptoms - UA had appeared positive, but culture had no growth. - History Source History Provided By: Patient, Medical Record Limitations to Obtaining History: Language Barrier (Danish - pt able to communicate reasonably in [place]ic, though) - Past Medical History Cardio/Vascular: Yes: HTN Gastrointestinal: Yes: GERD Reproductive: Yes: Fibroids, Postmenopausal Psych: Yes: Depression, Schizophrenia - Past Surgical History Past Surgical History: Yes: Hysterectomy Additional Surgical History: denies other - Alcohol/Substance Use Hx Alcohol Use: Yes (rarely wine) History of Substance Use: reports: None - Smoking History Smoking history: Former smoker Have you smoked in the past 12 months: No If you are a former smoker, when did you quit?: 10 years ago - Social History ADL: Independent Home Medications - Allergies Allergies/Adverse Reactions: Allergies Allergy/AdvReac Type Severity Reaction Status Date / Time metronidazole [From Flagyl] Allergy Verified 07/22/19 17:55 - Home Medications Home Medications: Ambulatory Orders Hydrochlorothiazide [Hctz -] 25 mg PO DAILY 07/22/19 Quetiapine Fumarate [Quetiapine Fumarate ER] 50 mg PO DAILY 07/22/19 Risperidone [Risperdal] 3 mg PO DAILY 07/22/19 Benztropine Mesylate 1 mg PO DAILY 07/23/19 Albuterol Sulfate Inhaler - [Ventolin HFA Inhaler -] 108 mcg IH PRN 07/24/19 Calcium Carbonate/Vitamin D3 [Calcium 500-Vit D3 200 Tablet] 1 each PO BID 07/24 Lisinopril 20 mg PO DAILY 07/24/19 Metoprolol Succinate [Toprol XL -] 25 mg PO DAILY 07/24/19 Paroxetine HCl 40 mg PO DAILY 07/24/19 Simvastatin 20 mg PO DAILY 07/24/19 Family Medical History Family History: Unremarkable (noncontributory) Review of Systems Unable to obtain ROS, reason: limited - Review of Systems Constitutional: reports: Diaphoresis, Weakness. denies: Chills, Fever, Loss of Appetite HENT: denies: Difficult Swallowing, Throat Pain Cardiovascular: denies: Chest Pain, Palpitations Respiratory: denies: Cough, SOB Gastrointestinal: reports: Abdominal Pain (with hpi). denies: Constipation, Diarrhea, Nausea, Vomiting Genitourinary: denies: Burning, Dysuria Musculoskeletal: denies: Back Pain, Joint Pain, Muscle Pain Integumentary: denies: Change in Color, Rash Neurological: denies: Dizziness, Headache, Syncope Endocrine: reports: Excessive Sweating (with hpi) Psychiatric: reports: Depression. denies: Anxiety Physical Exam Vital Signs: Vital Signs Temperature 98.4 F 07/24/19 14:00 Pulse Rate 107 H 07/24/19 14:00 Respiratory Rate 18 07/24/19 09:00 Blood Pressure 144/78 07/24/19 14:00 O2 Sat by Pulse Oximetry (%) 98 07/24/19 00:00 Constitutional: Yes: No Distress, Calm, Obese Eyes: Yes: Conjunctiva Clear, EOM Intact. No: Sclera Icterus HENT: Yes: Atraumatic, Normocephalic Neck: Yes: Supple, Trachea Midline Cardiovascular: Yes: Regular Rate and Rhythm Respiratory: Yes: Regular, CTA Bilaterally Gastrointestinal: Yes: Normal Bowel Sounds, Soft, Abdomen, Obese. No: Tenderness, Tenderness, Epigastrium ...Rectal Exam: Yes: Deferred Renal/: No: CVA Tenderness - Left, CVA Tenderness - Right Musculoskeletal: No: Joint Stiffness, Joint Swelling Extremities: No: Cool, Cyanosis Edema: No Peripheral Pulses WNL: Yes Integumentary: No: Jaundice, Rash Neurological: Yes: Alert, Oriented Psychiatric: Yes: Alert, Oriented Labs: CBC, BMP 07/24/19 05:20 07/24/19 05:20 CMP Sodium 142 mmol/L (136-145) 07/24/19 05:20 Potassium 3.8 mmol/L (3.5-5.1) 07/24/19 05:20 Chloride 107 mmol/L (98-107) 07/24/19 05:20 Carbon Dioxide 28 mmol/L (21-32) 07/24/19 05:20 Anion Gap 7 MMOL/L (8-16) L 07/24/19 05:20 BUN 18.6 mg/dL (7-18) H 07/24/19 05:20 Creatinine 0.8 mg/dL (0.55-1.3) 07/24/19 05:20 Est GFR (CKD-EPI)AfAm 87.18 07/24/19 05:20 Est GFR (CKD-EPI)NonAf 75.22 07/24/19 05:20 POC Glucometer 145 UNITS (80-120) 07/22/19 18:09 Random Glucose 106 mg/dL (74-106) 07/24/19 05:20 Lactic Acid 1.0 mmol/L (0.4-2.0) 07/22/19 23:32 Calcium 8.7 mg/dL (8.5-10.1) 07/24/19 05:20 Phosphorus 3.4 mg/dL (2.5-4.9) 07/23/19 06:05 Magnesium 2.0 mg/dL (1.8-2.4) 07/23/19 06:05 Total Bilirubin 0.3 mg/dL (0.2-1) 07/24/19 05:20 AST 68 U/L (15-37) H 07/24/19 05:20 ALT 144 U/L (13-61) H 07/24/19 05:20 Alkaline Phosphatase 72 U/L (45-117) 07/24/19 05:20 Troponin I < 0.02 ng/ml (0.00-0.05) 07/22/19 18:49 Total Protein 6.8 g/dl (6.4-8.2) 07/24/19 05:20 Albumin 3.5 g/dl (3.4-5.0) 07/24/19 05:20 Lipase 299 U/L (73-393) 07/24/19 05:20 Free T4 [place] 1.48 ng/dL (0.82-1.77) 07/23/19 03:59 TSH 3.52 uIU/ml (0.358-3.74) 07/23/19 06:05 Free T4 1.38 ng/dl (0.76-1.46) 07/23/19 06:05 Free T3 3.2 pg/ml (2.0-4.4) 07/23/19 03:59 Resin T3 Uptake 30.5 % (30-39) 07/22/19 18:49 INR, PTT INR 1.04 (0.83-1.09) 07/22/19 18:49 Urine Test Results Urine Color Dk yellow 07/22/19 19:40 Urine Appearance Turbid 07/22/19 19:40 Urine pH 5.0 (5.0-8.0) 07/22/19 19:40 Ur Specific [place] 1.025 (1.010-1.035) 07/22/19 19:40 Urine Protein 2+ (NEGATIVE) H 07/22/19 19:40 Urine Glucose (UA) Negative (NEGATIVE) 07/22/19 19:40 Urine Ketones Trace (NEGATIVE) H 07/22/19 19:40 Urine Blood Negative (NEGATIVE) 07/22/19 19:40 Urine Nitrite Negative (NEGATIVE) 07/22/19 19:40 Urine Bilirubin 1+ (NEGATIVE) H 07/22/19 19:40 Ur Leukocyte Esterase 1+ (NEGATIVE) H 07/22/19 19:40 Microbiology 07/22/19 19:40 Urine Culture - Final Urine - Urine Clean Catch NO GROWTH OBTAINED 07/22/19 18:49 Blood Culture - Preliminary Blood - Peripheral Venous NO GROWTH OBTAINED AFTER 24 HOURS, INCUBATION TO CONTINUE FOR 4 DAYS. 07/22/19 18:49 Blood Culture - Preliminary Blood - Peripheral Venous NO GROWTH OBTAINED AFTER 24 HOURS, INCUBATION TO CONTINUE FOR 4 DAYS. Imaging - Results Ultrasound: Report Reviewed, Image Reviewed (images reviewed - gallbladder ~6- 7cm long, no stones, ??small amount of sludge, wall 3mm, normal cbd, no pericholecystic fluid) Problem List - Problems (1) Elevated transaminase level Code(s): R74.0 - NONSPEC ELEV OF LEVELS OF TRANSAMNS & LACTIC ACID DEHYDRGNSE (2) Hypertension Code(s): I10 - ESSENTIAL (PRIMARY) HYPERTENSION Qualifiers: Hypertension type: essential hypertension Qualified Code(s): I10 - Essential (primary) hypertension (3) Schizophrenia Code(s): F20.9 - SCHIZOPHRENIA, UNSPECIFIED Qualifiers: Schizophrenia type: unspecified Qualified Code(s): F20.9 - Schizophrenia, unspecified (4) GERD without esophagitis Code(s): K21.9 - GASTRO-ESOPHAGEAL REFLUX DISEASE WITHOUT ESOPHAGITIS (5) Class 2 obesity due to excess calories without serious comorbidity with body mass index (BMI) of 35.0 to 35.9 in adult Code(s): E66.09 - OTHER OBESITY DUE TO EXCESS CALORIES; Z68.35 - BODY MASS INDEX (BMI) 35.0-35.9, ADULT Assessment/Plan patient without gallstones or symptoms attributable to biliary pathology no evidence of cholecystitis US with hepatomegaly, fatty liver vs hepatocellular disease - would f/u with her PMD or GI no acute surgical issues identified discussed with Dr. Rodney Thank you for the opportunity to participate in the care of this patient. will sign off - please call with questions
[2019-07-24 18:38] VITALS: BP 144/87
[2019-07-24 18:54] VITALS: PULSE 96; TEMP 98.2
--- NOTE | 2019-07-24 19:57 | DS ---
Physical Exam: SUBJECTIVE: Patient seen and examined. Pt was in no apparent distress. OBJECTIVE: Vital Signs Period Temp Pulse Resp BP Sys/Carbajal Pulse Ox Last 24 Hr 98.1 F-98.8 F 78-107 18-22 114-160/54-100 96-98 PHYSICAL EXAM NAD. AAOx3. MMM CV: RRR, No MRG Lungs: CTAB Abd: soft, TTP in RUQ, LUQ and epigastric area , no rebound tenderness or guarding . NL BS LABS Laboratory Results - last 24 hr 07/23/19 07/23/19 07/24/19 03:59 20:25 05:20 WBC 7.2 RBC 4.24 Hgb 12.6 Hct 37.4 MCV 88.2 MCH 29.8 MCHC 33.8 RDW 13.7 Plt Count 221 MPV 9.7 D Absolute Neuts (auto) 2.8 Neutrophils % 38.6 L D Lymphocytes % 46.2 H D Monocytes % 12.8 H Eosinophils % 1.6 D Basophils % 0.8 Nucleated RBC % 0 Sodium Potassium Chloride Carbon Dioxide Anion Gap BUN Creatinine Est GFR (CKD-EPI)AfAm Est GFR (CKD-EPI)NonAf Random Glucose Calcium Total Bilirubin AST ALT Alkaline Phosphatase Total Protein Albumin Lipase Free T4 Story 1.48 Free T3 3.2 Opiates Screen Negative Methadone Screen Negative Barbiturate Screen Negative Phencyclidine Screen Negative Ur Amphetamines Screen Negative MDMA (Ecstasy) Screen Negative Benzodiazepines Screen Negative Cocaine Screen Negative U Marijuana (THC) Screen Negative 07/24/19 05:20 WBC RBC Hgb Hct MCV MCH MCHC RDW Plt Count MPV Absolute Neuts (auto) Neutrophils % Lymphocytes % Monocytes % Eosinophils % Basophils % Nucleated RBC % Sodium 142 Potassium 3.8 Chloride 107 Carbon Dioxide 28 Anion Gap 7 L BUN 18.6 H Creatinine 0.8 Est GFR (CKD-EPI)AfAm 87.18 Est GFR (CKD-EPI)NonAf 75.22 Random Glucose 106 Calcium 8.7 Total Bilirubin 0.3 AST 68 H ALT 144 H Alkaline Phosphatase 72 Total Protein 6.8 Albumin 3.5 Lipase 299 Free T4 Story Free T3 Opiates Screen Methadone Screen Barbiturate Screen Phencyclidine Screen Ur Amphetamines Screen MDMA (Ecstasy) Screen Benzodiazepines Screen Cocaine Screen U Marijuana (THC) Screen CXR 07/22/19No acute chest pathology renal and abdominal U/S 07/22/19 The liver is enlarged measuring 20.9 cm in sagittal length with a moderately dense echotexture. The gallbladder is adequately distended with suggestion of a small sludge and without gross intraluminal stones. There is borderline thickening of its wall without gross pericholecystic free fluid. No intra or extrahepatic bile duct dilatation is seen. The right and left kidney measured 11.2 and 11.1 cm , respectively. Both kidneys appear unremarkable. The spleen measures 11.4 cm in sagittal length with homogeneous echotexture. Visualized portion of the pancreatic head and body appear unremarkable. Visualized portion of the proximal abdominal aorta and inferior vena cava appear unremarkable. Normal flow in the main portal HOSPITAL COURSE: Date of Admission:07/22/19 69 y/o Female with PMH of HTN and schizophrenia who presented to the ED because of episodes of extreme diaphoresis, weakness, visual changes (seeing black and white spots), confusion, and cold extremities that last for a few then resolves. In the ED, patient received 3 boluses of NS for the hypotension, CXR negative for acute pathology,EKg significant only for tachycardia, and UA positive for UTI 2+protein, 1+ jorge a, 1+ leukocyte est, 92 WBC. Upon IV fluid administration all symtpoms resolved. Orthostatics were negative and Echo was unremarkable. Pt was found to have some abnormal LFts with elevated white count and reflex abdominal U/S ordered and found positive for fatty liver and gallbladder with sludge and borderline wall thickening. surgery was consulted and had no acute management recommendations. Hepatitis panel was sent with pending results (pt to follow o/p with GI). pt had a creatitine of 2 on admission w/o history of kidney disease. U/s of the kidneys was ordered to r/o CKD ;returned WNL. Pt also had abnormal TFTs with normal repeat so we recommended for patient to follow as o/p with endo. Pt was diagnosed with vasovagal syncope as cause of presenting symptoms and to ambulate with caution and to stay hydrated. Date of Discharge: 07/24/19 Minutes to complete discharge: 35 Discharge Summary Reason For Visit: ACUTE KIDNEY INJURY/HYPOTHYROIDISM Condition: Improved - Instructions Diet, Activity, Other Instructions: You came into the ED because of recurrent episodes of cold sweats, weakness and blackouts. You received fluids and your symptoms improved. We took your blood pressure standing, sitting and lying down and that showed no significant difference. You were found to have abnormal liver functions which are coming back to normal.( due to fat infiltration in your liver ) .You had some injury to your kidneys that has also resolved with fluids. . Your symptoms have improved and you are ready to be discharged home. Medications: Please resume all of your home medications. Follow up: Please follow up with your primary care physician within one week. If you do not have one,we can refer you to our clinic at [address] [place] [address]. Please follow up with Dr Lee, GI doctor, within one week. please have your primary doctor repeat your thyroid function test in 1 week . if abnotmal , then you might need to be treated you can follow up with GI doctor , dr. Lee for your liver If you begin to experience worsening abdominal pain, loss of consciousness, chest pain, bleeding and fevers, please return to the Emergency Room immediately. we sent test fro hepatitis, and those are still pending results. please have your primary doctor follow those results Referrals: Rojas Ivy MD [Staff Physician] - 1 Week Castillo Lee DO [Staff Physician] - 1 Week Miladis Grover MD [Staff Physician] - 1 Week Disposition: HOME - Home Medications Comprehensive Discharge Medication List: Ambulatory Orders Hydrochlorothiazide [Hctz -] 25 mg PO DAILY 07/22/19 Quetiapine Fumarate [Quetiapine Fumarate ER] 50 mg PO DAILY 07/22/19 Risperidone [Risperdal] 3 mg PO DAILY 07/22/19 Benztropine Mesylate 1 mg PO DAILY 07/23/19 Albuterol Sulfate Inhaler - [Ventolin HFA Inhaler -] 108 mcg IH PRN 07/24/19 Calcium Carbonate/Vitamin D3 [Calcium 500-Vit D3 200 Tablet] 1 each PO BID 07/24 Lisinopril 20 mg PO DAILY 07/24/19 Metoprolol Succinate [Toprol XL -] 25 mg PO DAILY 07/24/19 Paroxetine HCl 40 mg PO DAILY 07/24/19 Simvastatin 20 mg PO DAILY 07/24/19 Problem List - Problems (1) NANCY (acute kidney injury) Code(s): N17.9 - ACUTE KIDNEY FAILURE, UNSPECIFIED (2) Vasovagal episode Code(s): R55 - SYNCOPE AND COLLAPSE This patient is new to me today: No Emergency Visit: Yes ED Registration Date: 07/22/19 Care time: The patient presented to the Emergency Department on the above date and was hospitalized for further evaluation of their emergent condition. Critical Care patient: No - Discharge Referral Referred to [facility] No ATTENDING PHYSICIAN STATEMENT I saw and evaluated the patient. I reviewed the resident's note and discussed the case with the resident. I agree with the resident's findings and plan as documented. SUBJECTIVE: OBJECTIVE: ASSESSMENT AND PLAN:
[2019-07-25] MEDS ORDERED: LISINOPRIL 20 MG TABLET (FP) PO SCH (10:00)
[2019-07-25] MEDS ORDERED: HYDROCHLOROTHIAZIDE 25 MG TABLET (FP) PO SCH (10:00)
[2019-07-25 16:10] LABS: 9-HYDROXYRISPERIDONE 19 ng/mL (Not Estab.); RISPERIDONE TOTAL 31 ng/mL (20-60)
[2019-07-25 18:07] LABS: HEP B CORE AB, TOT Negative (Negative)
== END 2019-07-24 19:40 | disposition home or self-care (01) | DRG 312 ==
LOC: JER 17:44 → JERBED 20:21 → J4W 07-23 21:26
PROVIDERS: ADMIT Internal Medicine; ATTEND Internal Medicine
DX: R55 Syncope and collapse (principal); N17.9 Acute kidney failure, unspecified; I95.9 Hypotension, unspecified; E03.9 Hypothyroidism, unspecified; F20.9 Schizophrenia, unspecified; I10 Essential (primary) hypertension; K21.9 Gastro-esophageal reflux disease without esophagitis; K82.9 Disease of gallbladder, unspecified; F32.9 Major depressive disorder, single episode, unspecified; E66.9 Obesity, unspecified; Z68.35 Body mass index [BMI] 35.0-35.9, adult; K76.0 Fatty (change of) liver, not elsewhere classified; R00.0 Tachycardia, unspecified
CPT/HCPCS: 36415; 71045-TC-FY; 71046-TC-FY; 76700-TC; 76775-TC; 80053; 80158; 80299; 80307; 81003; 82542; 82962; 83605; 83690; 83735; 84100; 84132; 84436; 84439; 84443; 84479; 84481; 84484; 85025; 85610; 85730; 86704; 86706; 86707; 86708; 86709; 87040; 87086; 87340; 87522; 90670; 93005; 93010; 93306-TC; 99285-25; J1644; J2794; J7030

== ENCOUNTER 2020-09-25 00:35 | Inpatient (IN) | payer OTHER ==
[2020-09-25] MEDS ORDERED: SODIUM CHLORIDE 1,000 ML ONE (00:44)
[2020-09-25] MEDS ORDERED: ONDANSETRON 4 MG/2 ML VIAL IVPB ONE (00:44)
[2020-09-25] MEDS ORDERED: ONDANSETRON 4 MG/2 ML VIAL ONE (00:50)
[2020-09-25] MEDS ORDERED: FAMOTIDINE 20 MG/50 ML IVPB 20 MG/50 ML MG IVPB ONE ×2 (00:56→01:28)
[2020-09-25] MEDS ORDERED: HYOSCYAMINE SULFATE 0.125 MG *ODT PO ONE (00:57)
[2020-09-25] MEDS ORDERED: HYOSCYAMINE SULFATE 0.125 MG *ODT ONE (01:27)
[2020-09-25 01:43] LABS: BASO % 0.4 % (0-2.0); EOS % 0.1 % (0-4.5); HEMATOCRIT 46.7 % (32.4-45.2); HEMOGLOBIN 15.3 GM/dL (10.7-15.3); LYMPH % 8.8 % (8-40); MCH 29.2 pg (25.7-33.7); MCHC 32.8 g/dl (32.0-36.0); MEAN CELL VOLUME 89.1 fl (80-96); MEAN PLT VOLUME 10.6 fl (7.5-11.1); MONO % 5.2 % (3.8-10.2); NEUT % 85.5 % (42.8-82.8); PLATELET COUNT 265 K/MM3 (134-434); RBC 5.24 M/mm3 (3.60-5.2); RDW 13.2 % (11.6-15.6); WHITE BLOOD COUNT 22.5 K/mm3 (4.0-10.0)
[2020-09-25 02:32] LABS: PLATELET ESTIMATE ADEQUATE
[2020-09-25] MEDS ORDERED: morphine CARPU-JECT 4 MG/1 ML DISP.SYRIN IVPUSH ONE ×2 (02:33→06:15)
[2020-09-25] MEDS ORDERED: morphine SULFATE 4 MG/ML VIAL ONE ×2 (02:44→06:20)
[2020-09-25 02:54] LABS: BLOOD UREA NITROGEN 22.8 mg/dL (7-18); CHLORIDE 102 mmol/L (98-107); CO2 27 mmol/L (21-32); CREATININE 0.9 mg/dL (0.55-1.3); GLUCOSE,RANDOM 252 mg/dL (74-106); SODIUM 140 mmol/L (136-145)
[2020-09-25 02:55] LABS: ANION GAP 15 MMOL/L (8-16); CALCIUM 9.8 mg/dL (8.5-10.1); TOT PROT 8.2 g/dl (6.4-8.2)
[2020-09-25 02:56] LABS: ALBUMIN 3.8 g/dl (3.4-5.0); ALK PHOS 103 U/L (45-117); BILIRUBIN,TOTAL 1.1 mg/dL (0.2-1); SGOT/AST 180 U/L (15-37); SGPT/ALT 189 U/L (13-61)
[2020-09-25 04:42] LABS: AMYLASE > 650 U/L (25-115); LIPASE > 30000 U/L (73-393)
[2020-09-25] MEDS ORDERED: PIPERACILLIN/TAZOB 4.5 GM 4.5 GM in DEXTROSE 5%-WATER 100 ML IVPB ONE (06:00)
[2020-09-25] MEDS ORDERED: PIPERACILLIN/TAZOBACTAM 4.5 GM VIAL IVPB ONE (06:05)
[2020-09-25] MEDS ORDERED: LACTATED RINGERS SOLUTION 1,000 ML IV STA (07:50)
[2020-09-25] MEDS ORDERED: PIPERACILLIN/TAZOB 3.375 GM 3.375 GM in DEXTROSE 5%-WATER - 50 ML IVPB SCH (09:00)
[2020-09-25] MEDS ORDERED: LACTATED RINGERS SOLUTION 1,000 ML/1,000 ML INFUS.BAG IV SCH ×2 (09:00→09:13)
[2020-09-25] MEDS ORDERED: ONDANSETRON 4 MG/2 ML VIAL IVPB PRN (09:02)
[2020-09-25] MEDS ORDERED: PIPERACILLIN/TAZOBACTAM 3.375 GM VIAL IVPB ONE ×3 (09:40→20:05)
[2020-09-25] MEDS ORDERED: DEXTROSE 5%-WATER - 50 ML IVPB ONE ×3 (09:41→20:05)
[2020-09-25] MEDS: KCL 10 MEQ IVPB 10 MEQ/100 ML INFUS.BAG IVPB SCH ×2 (10:06→11:01)
[2020-09-25] MEDS: METOPROLOL TARTRATE 5 MG/5 ML VIAL IVPUSH PRN (10:07)
[2020-09-25] MEDS: PANTOPRAZOLE SODIUM 40 MG VIAL IVPUSH SCH ×2 (10:59→21:01)
[2020-09-25] MEDS: LACTATED RINGERS SOLUTION 1,000 ML/1,000 ML INFUS.BAG IV SCH (11:01)
[2020-09-25 12:51] LABS: LDH 278 U/L (84-246)
[2020-09-25] MEDS ORDERED: METOPROLOL TARTRATE 5 MG/5 ML VIAL IVPUSH ONE (13:52)
[2020-09-25] MEDS: PIPERACILLIN/TAZOB 3.375 GM 3.375 GM in DEXTROSE 5%-WATER - 50 ML IVPB SCH ×2 (15:00→21:01)
[2020-09-25] MEDS ORDERED: PT OWN MED DRAWER 7, Y5N ONE ×2 (15:32→20:05)
[2020-09-25] MEDS ORDERED: LISINOPRIL 20 MG TABLET PO ONE (16:00)
[2020-09-25] MEDS: INSULIN SLIDING SCALE (NOVOLOG) 1 VIAL SQ SCH ×2 (17:42→21:53)
[2020-09-25] MEDS: MUPIROCIN 2% TOPICAL OINTMENT FOR DECOLONIZATION NS SCH ×2 (19:56→21:01)
[2020-09-25] MEDS: morphine SULFATE 4 MG/ML VIAL IVPUSH PRN (21:01)
[2020-09-25] MEDS: CHLORHEXIDINE GLUCONATE 4% CLEANSER FOR DECOLONIZATION TP SCH (21:01)
[2020-09-25] MEDS ORDERED: LISINOPRIL 20 MG TABLET PO SCH (22:00)
[2020-09-26] MEDS ORDERED: DEXTROSE 5%-WATER - 50 ML IVPB ONE ×5 (01:37→20:07)
[2020-09-26] MEDS ORDERED: PIPERACILLIN/TAZOBACTAM 3.375 GM VIAL IVPB ONE ×5 (01:37→20:07)
[2020-09-26] MEDS: METOPROLOL TARTRATE 5 MG/5 ML VIAL IVPUSH PRN (01:51)
[2020-09-26] MEDS: PIPERACILLIN/TAZOB 3.375 GM 3.375 GM in DEXTROSE 5%-WATER - 50 ML IVPB SCH ×4 (02:18→21:51)
[2020-09-26] MEDS: INSULIN SLIDING SCALE (NOVOLOG) 1 VIAL SQ SCH ×4 (07:04→22:30)
[2020-09-26 07:31] LABS: ALBUMIN 2.6 g/dl (3.4-5.0); MAGNESIUM 1.6 mg/dL (1.8-2.4)
[2020-09-26 07:34] LABS: CREATININE 0.8 mg/dL (0.55-1.3); PHOSPHOROUS 3.6 mg/dL (2.5-4.9)
[2020-09-26 07:37] LABS: BASO % 0.3 % (0-2.0); EOS % 0.1 % (0-4.5); HEMATOCRIT 51.1 % (32.4-45.2); HEMOGLOBIN 16.6 GM/dL (10.7-15.3); LYMPH % 6.8 % (8-40); MCH 29.4 pg (25.7-33.7); MCHC 32.5 g/dl (32.0-36.0); MEAN CELL VOLUME 90.2 fl (80-96); MEAN PLT VOLUME 10.9 fl (7.5-11.1); MONO % 8.8 % (3.8-10.2); PLATELET COUNT 132 K/MM3 (134-434); RBC 5.67 M/mm3 (3.60-5.2); RDW 13.8 % (11.6-15.6)
[2020-09-26] MEDS ORDERED: MAGNESIUM SULF 50% (8.12 MEQ/2 ML-1 GM VIAL) IVPB ONE (07:42)
[2020-09-26 07:44] LABS: WHITE BLOOD COUNT 30.4 K/mm3 (4.0-10.0)
[2020-09-26] MEDS ORDERED: MAGNESIUM 1GM/D5W - 1 GM/100 ML IVPB IVPB ONE (08:00)
[2020-09-26 08:11] LABS: BILIRUBIN,TOTAL 0.8 mg/dL (0.2-1)
[2020-09-26] MEDS ORDERED: PT OWN MED DRAWER 7, Y5N ONE ×2 (09:16→19:55)
[2020-09-26 09:41] LABS: ANISOCYTOSIS 1+; MACROCYTOSIS 0; OVALOCYTE 1+; PLATELET ESTIMATE DECREASED; TARGET CELLS 1+; TEAR DROP CELLS 1+; TOXIC GRANULATION 2+
[2020-09-26] MEDS ORDERED: PARoxetine HCL 20 MG TABLET PO SCH (10:00)
[2020-09-26] MEDS: LACTATED RINGERS SOLUTION 1,000 ML/1,000 ML INFUS.BAG IV SCH (10:03)
[2020-09-26] MEDS: PANTOPRAZOLE SODIUM 40 MG VIAL IVPUSH SCH ×2 (10:04→21:51)
[2020-09-26] MEDS: MUPIROCIN 2% TOPICAL OINTMENT FOR DECOLONIZATION NS SCH ×2 (10:04→21:51)
[2020-09-26] MEDS: CHLORHEXIDINE GLUCONATE 4% CLEANSER FOR DECOLONIZATION TP SCH (21:51)
[2020-09-26] MEDS: LISINOPRIL 20 MG TABLET PO SCH (21:51)
[2020-09-26] MEDS: morphine SULFATE 4 MG/ML VIAL IVPUSH PRN (22:30)
[2020-09-27] MEDS ORDERED: DEXTROSE 5%-WATER - 50 ML IVPB ONE ×4 (02:33→21:46)
[2020-09-27] MEDS ORDERED: PIPERACILLIN/TAZOBACTAM 3.375 GM VIAL IVPB ONE ×4 (02:33→21:46)
[2020-09-27] MEDS: PIPERACILLIN/TAZOB 3.375 GM 3.375 GM in DEXTROSE 5%-WATER - 50 ML IVPB SCH ×5 (02:35→21:50)
[2020-09-27 06:57] LABS: BASO % 0.2 % (0-2.0); HEMATOCRIT 41.5 % (32.4-45.2); HEMOGLOBIN 13.5 GM/dL (10.7-15.3); LYMPH % 9.6 % (8-40); MCH 28.9 pg (25.7-33.7); MCHC 32.6 g/dl (32.0-36.0); MEAN CELL VOLUME 88.8 fl (80-96); MONO % 7.4 % (3.8-10.2); NEUT % 82.8 % (42.8-82.8); PLATELET COUNT 172 K/MM3 (134-434); RBC 4.67 M/mm3 (3.60-5.2); WHITE BLOOD COUNT 25.7 K/mm3 (4.0-10.0)
[2020-09-27] MEDS: INSULIN SLIDING SCALE (NOVOLOG) 1 VIAL SQ SCH ×3 (07:26→16:38)
[2020-09-27 07:38] LABS: ALBUMIN 2.5 g/dl (3.4-5.0); BLOOD UREA NITROGEN 29.4 mg/dL (7-18)
[2020-09-27 07:41] LABS: PHOSPHOROUS 2.5 mg/dL (2.5-4.9)
[2020-09-27 07:42] LABS: BILIRUBIN,TOTAL 0.8 mg/dL (0.2-1); TOT PROT 5.6 g/dl (6.4-8.2)
[2020-09-27 08:46] LABS: ANISOCYTOSIS 1+; MACROCYTOSIS 0; PLATELET ESTIMATE NORMAL
[2020-09-27] MEDS ORDERED: CALCIUM CARBONATE 650 MG TABLET PO ONE (08:47)
[2020-09-27] MEDS ORDERED: POTASSIUM CHLORIDE TABS 20 MEQ TABLET.ER (FP) PO ONE (08:47)
[2020-09-27] MEDS: MUPIROCIN 2% TOPICAL OINTMENT FOR DECOLONIZATION NS SCH ×2 (09:19→21:50)
[2020-09-27] MEDS: PANTOPRAZOLE SODIUM 40 MG VIAL IVPUSH SCH ×2 (09:19→21:50)
[2020-09-27 10:13] LABS: EPI CELLS 19 /uL (0-25.1); HYALINE CASTS 3 /uL (0-3.1); PH,URINE 5.5 (5.0-8.0); URINE APPEARANCE CLOUDY; URINE BACTERIA 2 /uL (0-1359); URINE BILIRUBIN NEGATIVE (NEGATIVE); URINE COLOR YELLOW; URINE GLUCOSE (UA) NEGATIVE (NEGATIVE); URINE KETONE NEGATIVE (NEGATIVE); URINE LEUK ESTERASE NEGATIVE (NEGATIVE); URINE NITRITE NEGATIVE (NEGATIVE); URINE PROTEIN 1+ (NEGATIVE); URINE RBC 10 /uL (0-23.9); URINE UROBILINOGEN 0.2 mg/dL (0.2-1.0); URINE WBC 7 /uL (0-25.8)
[2020-09-27] MEDS: POTASSIUM CHLORIDE ORAL LIQUID 20 MEQ/15 ML PO SCH ×2 (10:53→21:50)
[2020-09-27] MEDS: PARoxetine HCL 20 MG TABLET PO SCH (10:53)
[2020-09-27] MEDS: LACTATED RINGERS SOLUTION 1,000 ML/1,000 ML INFUS.BAG IV SCH ×2 (10:54→10:55)
[2020-09-27] MEDS ORDERED: ALBUTEROL SO4 0.083% IH SOL 2.5 MG/3 ML VIAL.NEB. NEB PRN (16:04)
[2020-09-27] MEDS: METOPROLOL TARTRATE 5 MG/5 ML VIAL IVPUSH PRN ×2 (16:10→22:26)
[2020-09-27] MEDS: CHLORHEXIDINE GLUCONATE 4% CLEANSER FOR DECOLONIZATION TP SCH (21:50)
[2020-09-27] MEDS: LISINOPRIL 20 MG TABLET PO SCH (21:50)
[2020-09-27] MEDS: ALBUTEROL SO4 2.5/IPRATROPIUM 0.5 INH SOL 3 ML VIAL.NEB. NEB PRN (22:24)
[2020-09-27] MEDS: morphine SULFATE 4 MG/ML VIAL IVPUSH PRN (22:26)
[2020-09-28] MEDS: INSULIN SLIDING SCALE (NOVOLOG) 1 VIAL SQ SCH ×5 (02:11→21:36)
[2020-09-28] MEDS: morphine SULFATE 4 MG/ML VIAL IVPUSH PRN ×2 (02:11→21:35)
[2020-09-28 02:17] LABS: ARTERIAL BLD GAS O2 SATURATION 92.2 mmHg (95-98); ARTERIAL BLOOD GAS BASE EXCESS 1.6 mmol/L (-2-2); ARTERIAL BLOOD GAS PO2 61.1 mmHg (80-100); ARTERIAL BLOOD GAS pH 7.435 (7.350-7.450)
[2020-09-28 02:20] LABS: ALLENS TEST POSITIVE
[2020-09-28] MEDS ORDERED: morphine CARPU-JECT 2 MG/1 ML DISP.SYRIN IVPUSH ONE (02:33)
[2020-09-28] MEDS ORDERED: DEXTROSE 5%-WATER - 50 ML IVPB ONE ×4 (02:36→21:34)
[2020-09-28] MEDS ORDERED: PIPERACILLIN/TAZOBACTAM 3.375 GM VIAL IVPB ONE ×4 (02:36→21:33)
[2020-09-28] MEDS: PIPERACILLIN/TAZOB 3.375 GM 3.375 GM in DEXTROSE 5%-WATER - 50 ML IVPB SCH ×4 (02:45→21:35)
[2020-09-28 06:34] LABS: BASO % 0.2 % (0-2.0); HEMATOCRIT 34.6 % (32.4-45.2); HEMOGLOBIN 11.4 GM/dL (10.7-15.3); MEAN PLT VOLUME 9.5 fl (7.5-11.1); MONO % 8.9 % (3.8-10.2); NEUT % 79.9 % (42.8-82.8); PLATELET COUNT 140 K/MM3 (134-434); RBC 3.94 M/mm3 (3.60-5.2); RDW 13.5 % (11.6-15.6); WHITE BLOOD COUNT 15.8 K/mm3 (4.0-10.0)
[2020-09-28 06:48] LABS: ALBUMIN 2.2 g/dl (3.4-5.0); BLOOD UREA NITROGEN 14.2 mg/dL (7-18); MAGNESIUM 1.9 mg/dL (1.8-2.4)
[2020-09-28 06:51] LABS: PHOSPHOROUS 1.3 mg/dL (2.5-4.9)
[2020-09-28 06:52] LABS: CREATININE 0.5 mg/dL (0.55-1.3)
[2020-09-28 06:53] LABS: BILIRUBIN,TOTAL 0.6 mg/dL (0.2-1); TOT PROT 5.2 g/dl (6.4-8.2)
[2020-09-28 07:03] LABS: CALCIUM 5.7 mg/dL (8.5-10.1)
[2020-09-28] MEDS: ALBUTEROL SO4 2.5/IPRATROPIUM 0.5 INH SOL 3 ML VIAL.NEB. NEB PRN ×4 (07:45→20:40)
[2020-09-28] MEDS ORDERED: KCL 10 MEQ IVPB 10 MEQ/100 ML INFUS.BAG IVPB SCH (08:15)
[2020-09-28] MEDS ORDERED: CALCIUM GLUCONATE 10% - 1,000 MG/10 ML VIAL IVPB ONE (08:30)
[2020-09-28] MEDS ORDERED: POTASSIUM PHOSPHATE 30 MM in DEXTROSE 5%-WATER - 250 ML IVPB ONE (09:00)
[2020-09-28] MEDS: PANTOPRAZOLE SODIUM 40 MG VIAL IVPUSH SCH ×2 (09:12→21:35)
[2020-09-28] MEDS: PARoxetine HCL 20 MG TABLET PO SCH (09:20)
[2020-09-28] MEDS: MUPIROCIN 2% TOPICAL OINTMENT FOR DECOLONIZATION NS SCH ×3 (09:23→21:48)
[2020-09-28] MEDS ORDERED: PT OWN MED DRAWER 7, Y5N ONE (09:25)
[2020-09-28] MEDS: LACTATED RINGERS SOLUTION 1,000 ML/1,000 ML INFUS.BAG IV SCH (11:06)
[2020-09-28] MEDS ORDERED: FUROSEMIDE 40 MG/4 ML INJECTABLE VIAL IVPUSH ONE (11:48)
[2020-09-28] MEDS: HEPARIN NA (PORCINE) 5,000 UNITS/ML 1ML VIAL SQ SCH ×2 (13:10→21:35)
[2020-09-28] MEDS: METOPROLOL TARTRATE 5 MG/5 ML VIAL IVPUSH PRN (16:04)
[2020-09-28] MEDS: LISINOPRIL 20 MG TABLET PO SCH (21:36)
[2020-09-28] MEDS: CHLORHEXIDINE GLUCONATE 4% CLEANSER FOR DECOLONIZATION TP SCH (21:49)
[2020-09-29] MEDS ORDERED: PIPERACILLIN/TAZOBACTAM 3.375 GM VIAL IVPB ONE ×4 (00:50→20:49)
[2020-09-29] MEDS ORDERED: DEXTROSE 5%-WATER - 50 ML IVPB ONE ×4 (00:50→20:49)
[2020-09-29] MEDS: PIPERACILLIN/TAZOB 3.375 GM 3.375 GM in DEXTROSE 5%-WATER - 50 ML IVPB SCH ×4 (02:02→21:10)
[2020-09-29] MEDS: INSULIN SLIDING SCALE (NOVOLOG) 1 VIAL SQ SCH ×4 (06:19→21:09)
[2020-09-29] MEDS: HEPARIN NA (PORCINE) 5,000 UNITS/ML 1ML VIAL SQ SCH ×3 (06:20→21:10)
[2020-09-29 07:09] LABS: HEMOGLOBIN 10.8 GM/dL (10.7-15.3); MCH 29.6 pg (25.7-33.7); MCHC 33.7 g/dl (32.0-36.0); MEAN CELL VOLUME 87.7 fl (80-96); MEAN PLT VOLUME 9.4 fl (7.5-11.1); PLATELET COUNT 176 K/MM3 (134-434); RBC 3.65 M/mm3 (3.60-5.2); RDW 13.7 % (11.6-15.6); WHITE BLOOD COUNT 15.7 K/mm3 (4.0-10.0)
[2020-09-29 07:41] LABS: BLOOD UREA NITROGEN 11.3 mg/dL (7-18)
[2020-09-29 07:43] LABS: ALBUMIN 2.2 g/dl (3.4-5.0); MAGNESIUM 1.7 mg/dL (1.8-2.4)
[2020-09-29 07:46] LABS: CREATININE 0.4 mg/dL (0.55-1.3); PHOSPHOROUS 1.6 mg/dL (2.5-4.9)
[2020-09-29 07:47] LABS: BILIRUBIN,TOTAL 0.8 mg/dL (0.2-1); TOT PROT 5.3 g/dl (6.4-8.2)
[2020-09-29] MEDS: ALBUTEROL SO4 2.5/IPRATROPIUM 0.5 INH SOL 3 ML VIAL.NEB. NEB PRN ×2 (07:55→11:49)
[2020-09-29 09:13] LABS: CALCIUM 6.1 mg/dL (8.5-10.1)
[2020-09-29] MEDS: PANTOPRAZOLE SODIUM 40 MG VIAL IVPUSH SCH ×2 (09:20→21:10)
[2020-09-29] MEDS: PARoxetine HCL 20 MG TABLET PO SCH (09:20)
[2020-09-29] MEDS: METOPROLOL TARTRATE 5 MG/5 ML VIAL IVPUSH PRN (09:40)
[2020-09-29] MEDS ORDERED: PT OWN MED DRAWER 7, Y5N ONE (12:40)
[2020-09-29] MEDS: MUPIROCIN 2% TOPICAL OINTMENT FOR DECOLONIZATION NS SCH (21:08)
[2020-09-29] MEDS: LISINOPRIL 20 MG TABLET PO SCH (21:09)
[2020-09-29] MEDS: CHLORHEXIDINE GLUCONATE 4% CLEANSER FOR DECOLONIZATION TP SCH (21:09)
[2020-09-29] MEDS: morphine SULFATE 4 MG/ML VIAL IVPUSH PRN (21:10)
[2020-09-30] MEDS ORDERED: PIPERACILLIN/TAZOBACTAM 3.375 GM VIAL IVPB ONE ×4 (01:49→21:11)
[2020-09-30] MEDS ORDERED: DEXTROSE 5%-WATER - 50 ML IVPB ONE ×4 (01:49→21:11)
[2020-09-30] MEDS: PIPERACILLIN/TAZOB 3.375 GM 3.375 GM in DEXTROSE 5%-WATER - 50 ML IVPB SCH ×4 (02:14→21:12)
[2020-09-30] MEDS: HEPARIN NA (PORCINE) 5,000 UNITS/ML 1ML VIAL SQ SCH ×3 (05:38→21:12)
[2020-09-30] MEDS: INSULIN SLIDING SCALE (NOVOLOG) 1 VIAL SQ SCH ×4 (06:35→21:09)
[2020-09-30 07:13] LABS: HEMOGLOBIN 10.8 GM/dL (10.7-15.3); MCH 28.7 pg (25.7-33.7); MCHC 32.8 g/dl (32.0-36.0); MEAN CELL VOLUME 87.4 fl (80-96); MEAN PLT VOLUME 8.5 fl (7.5-11.1); PLATELET COUNT 194 K/MM3 (134-434); RBC 3.78 M/mm3 (3.60-5.2); RDW 13.6 % (11.6-15.6); WHITE BLOOD COUNT 16.4 K/mm3 (4.0-10.0)
[2020-09-30 07:56] LABS: BLOOD UREA NITROGEN 9.7 mg/dL (7-18)
[2020-09-30 07:58] LABS: CREATININE 0.3 mg/dL (0.55-1.3)
[2020-09-30 07:59] LABS: BILIRUBIN,DIRECT 0.4 mg/dL (0.0-0.2); PHOSPHOROUS 1.6 mg/dL (2.5-4.9)
[2020-09-30 08:01] LABS: BILIRUBIN,TOTAL 0.7 mg/dL (0.2-1)
[2020-09-30] MEDS ORDERED: POTASSIUM PHOSPHATE 30 MM in DEXTROSE 5%-WATER - 250 ML IVPB ONE (08:26)
[2020-09-30 08:30] LABS: CALCIUM 6.7 mg/dL (8.5-10.1)
[2020-09-30] MEDS ORDERED: CALCIUM CARBONATE 650 MG TABLET PO ONE (08:42)
[2020-09-30] MEDS: PANTOPRAZOLE SODIUM 40 MG VIAL IVPUSH SCH ×2 (08:59→21:12)
[2020-09-30] MEDS: POTASSIUM CHLORIDE ORAL LIQUID 20 MEQ/15 ML PO ONE ×2 (08:59→11:59)
[2020-09-30] MEDS: KCL 10 MEQ IVPB 10 MEQ/100 ML INFUS.BAG IVPB SCH ×3 (08:59→11:17)
[2020-09-30] MEDS: PARoxetine HCL 20 MG TABLET PO SCH (09:00)
[2020-09-30] MEDS ORDERED: guaiFENesin 200 MG/10 ML 10 ML UNIT-DOSE CUPS PO PRN (11:37)
[2020-09-30] MEDS ORDERED: LISINOPRIL 20 MG TABLET PO ONE (14:54)
[2020-09-30] MEDS: CHLORHEXIDINE GLUCONATE 4% CLEANSER FOR DECOLONIZATION TP SCH (21:09)
[2020-09-30] MEDS: ATORVASTATIN CA 10 MG TABLET (FP) PO SCH (21:12)
[2020-09-30] MEDS: LISINOPRIL 20 MG TABLET PO SCH (21:12)
[2020-09-30 21:31] LABS: BLOOD UREA NITROGEN 7.4 mg/dL (7-18)
[2020-09-30 21:34] LABS: CREATININE 0.3 mg/dL (0.55-1.3)
[2020-10-01] MEDS ORDERED: PIPERACILLIN/TAZOBACTAM 3.375 GM VIAL IVPB ONE ×4 (01:41→20:13)
[2020-10-01] MEDS ORDERED: DEXTROSE 5%-WATER - 50 ML IVPB ONE ×4 (01:41→20:14)
[2020-10-01] MEDS: PIPERACILLIN/TAZOB 3.375 GM 3.375 GM in DEXTROSE 5%-WATER - 50 ML IVPB SCH ×4 (02:01→21:24)
[2020-10-01] MEDS: HEPARIN NA (PORCINE) 5,000 UNITS/ML 1ML VIAL SQ SCH ×3 (06:35→21:24)
[2020-10-01] MEDS: INSULIN SLIDING SCALE (NOVOLOG) 1 VIAL SQ SCH ×4 (06:35→21:25)
[2020-10-01 06:47] LABS: BASO % 0.3 % (0-2.0); EOS % 0.4 % (0-4.5); HEMATOCRIT 33.6 % (32.4-45.2); HEMOGLOBIN 10.9 GM/dL (10.7-15.3); LYMPH % 9.3 % (8-40); MCH 28.6 pg (25.7-33.7); MCHC 32.5 g/dl (32.0-36.0); MEAN CELL VOLUME 87.9 fl (80-96); MEAN PLT VOLUME 8.2 fl (7.5-11.1); MONO % 8.4 % (3.8-10.2); NEUT % 81.6 % (42.8-82.8); PLATELET COUNT 224 K/MM3 (134-434); RBC 3.82 M/mm3 (3.60-5.2); RDW 13.8 % (11.6-15.6); WHITE BLOOD COUNT 19.7 K/mm3 (4.0-10.0)
[2020-10-01 07:15] LABS: BLOOD UREA NITROGEN 8.8 mg/dL (7-18); CALCIUM 7.2 mg/dL (8.5-10.1); MAGNESIUM 2.1 mg/dL (1.8-2.4)
[2020-10-01 07:18] LABS: CREATININE 0.3 mg/dL (0.55-1.3); PHOSPHOROUS 2.6 mg/dL (2.5-4.9)
[2020-10-01 07:19] LABS: BILIRUBIN,TOTAL 0.7 mg/dL (0.2-1); TOT PROT 5.2 g/dl (6.4-8.2)
[2020-10-01] MEDS ORDERED: POTASSIUM CHLORIDE TABS 20 MEQ TABLET.ER (FP) PO ONE ×2 (08:18→18:41)
[2020-10-01 09:04] LABS: ANISOCYTOSIS 0; MACROCYTOSIS 0
[2020-10-01] MEDS ORDERED: PT OWN MED DRAWER 7, Y5N ONE (09:04)
[2020-10-01] MEDS: PARoxetine HCL 20 MG TABLET PO SCH (09:08)
[2020-10-01] MEDS: PANTOPRAZOLE SODIUM 40 MG VIAL IVPUSH SCH ×2 (09:08→21:25)
[2020-10-01 12:55] VITALS: BMI 43.4
[2020-10-01] MEDS ORDERED: guaiFENesin 200 MG/10 ML 10 ML UNIT-DOSE CUPS PO PRN (15:49)
[2020-10-01] MEDS ORDERED: ONDANSETRON 4 MG/2 ML VIAL IVPB PRN (15:49)
[2020-10-01] MEDS ORDERED: LISINOPRIL 20 MG TABLET PO SCH ×2 (16:52→22:00)
[2020-10-01] MEDS ORDERED: LISINOPRIL 20 MG TABLET PO ONE (17:04)
[2020-10-01] MEDS ORDERED: INSULIN (NOVOLOG) ASPART 100 UNITS/ML 10ML VIAL ONE (21:12)
[2020-10-01] MEDS: ATORVASTATIN CA 10 MG TABLET (FP) PO SCH (21:24)
[2020-10-01] MEDS: ALBUTEROL SO4 2.5/IPRATROPIUM 0.5 INH SOL 3 ML VIAL.NEB. NEB PRN (22:02)
[2020-10-02] MEDS ORDERED: DEXTROSE 5%-WATER - 50 ML IVPB ONE ×4 (01:15→20:31)
[2020-10-02] MEDS ORDERED: PIPERACILLIN/TAZOBACTAM 3.375 GM VIAL IVPB ONE ×4 (01:15→20:30)
[2020-10-02] MEDS: PIPERACILLIN/TAZOB 3.375 GM 3.375 GM in DEXTROSE 5%-WATER - 50 ML IVPB SCH ×5 (02:48→21:17)
[2020-10-02] MEDS: HEPARIN NA (PORCINE) 5,000 UNITS/ML 1ML VIAL SQ SCH ×3 (07:20→21:20)
[2020-10-02] MEDS: INSULIN SLIDING SCALE (NOVOLOG) 1 VIAL SQ SCH ×4 (07:20→21:22)
[2020-10-02 08:58] LABS: BASO % 0.1 % (0-2.0); EOS % 0.2 % (0-4.5); HEMATOCRIT 31.8 % (32.4-45.2); HEMOGLOBIN 10.7 GM/dL (10.7-15.3); LYMPH % 6.4 % (8-40); MCH 29.5 pg (25.7-33.7); MCHC 33.7 g/dl (32.0-36.0); MEAN CELL VOLUME 87.4 fl (80-96); MONO % 6.8 % (3.8-10.2); NEUT % 86.5 % (42.8-82.8); PLATELET COUNT 254 K/MM3 (134-434); RBC 3.64 M/mm3 (3.60-5.2); RDW 13.8 % (11.6-15.6); WHITE BLOOD COUNT 24.8 K/mm3 (4.0-10.0)
[2020-10-02] MEDS: PARoxetine HCL 20 MG TABLET PO SCH (09:32)
[2020-10-02] MEDS: PANTOPRAZOLE SODIUM 40 MG VIAL IVPUSH SCH ×2 (09:33→21:21)
[2020-10-02 09:42] LABS: BLOOD UREA NITROGEN 7.3 mg/dL (7-18)
[2020-10-02 09:45] LABS: CREATININE 0.4 mg/dL (0.55-1.3)
[2020-10-02 09:46] LABS: ALBUMIN 1.8 g/dl (3.4-5.0); BILIRUBIN,TOTAL 0.6 mg/dL (0.2-1); CALCIUM 7.6 mg/dL (8.5-10.1); MAGNESIUM 1.9 mg/dL (1.8-2.4)
[2020-10-02 10:35] LABS: ANISOCYTOSIS 0; MACROCYTOSIS 0; PLATELET ESTIMATE NORMAL
[2020-10-02 13:55] LABS: INR 1.2 (0.83-1.09); PROTHROMBIN TIME (PATIENT) 14.4 SEC (9.7-13.0)
[2020-10-02] MEDS ORDERED: PT OWN MED DRAWER 7, Y5N ONE (20:30)
[2020-10-02] MEDS: ATORVASTATIN CA 10 MG TABLET (FP) PO SCH (21:20)
[2020-10-02] MEDS: ACETAMINOPHEN 325 MG TABLET (FP) PO PRN (21:40)
[2020-10-02] MEDS ORDERED: LISINOPRIL 20 MG TABLET PO SCH (22:00)
[2020-10-03] MEDS ORDERED: DEXTROSE 5%-WATER - 50 ML IVPB ONE ×4 (02:36→21:03)
[2020-10-03] MEDS ORDERED: PIPERACILLIN/TAZOBACTAM 3.375 GM VIAL IVPB ONE ×4 (02:36→21:03)
[2020-10-03] MEDS: PIPERACILLIN/TAZOB 3.375 GM 3.375 GM in DEXTROSE 5%-WATER - 50 ML IVPB SCH ×4 (02:59→21:47)
[2020-10-03] MEDS: INSULIN SLIDING SCALE (NOVOLOG) 1 VIAL SQ SCH ×4 (06:02→21:49)
[2020-10-03] MEDS: HEPARIN NA (PORCINE) 5,000 UNITS/ML 1ML VIAL SQ SCH ×3 (06:03→21:49)
[2020-10-03 10:17] LABS: BASO % 0.3 % (0-2.0); EOS % 0.4 % (0-4.5); HEMATOCRIT 31.9 % (32.4-45.2); HEMOGLOBIN 10.7 GM/dL (10.7-15.3); LYMPH % 5.9 % (8-40); MCH 29.5 pg (25.7-33.7); MCHC 33.5 g/dl (32.0-36.0); MEAN CELL VOLUME 88.1 fl (80-96); MEAN PLT VOLUME 7.9 fl (7.5-11.1); MONO % 5.8 % (3.8-10.2); NEUT % 87.6 % (42.8-82.8); PLATELET COUNT 297 K/MM3 (134-434); RBC 3.63 M/mm3 (3.60-5.2)
[2020-10-03] MEDS ORDERED: PT OWN MED DRAWER 7, Y5N ONE ×2 (10:23→21:05)
[2020-10-03 10:25] LABS: INR 1.22 (0.83-1.09); PROTHROMBIN TIME (PATIENT) 14.9 SEC (9.7-13.0)
[2020-10-03] MEDS: PANTOPRAZOLE SODIUM 40 MG VIAL IVPUSH SCH ×2 (10:25→21:50)
[2020-10-03] MEDS: PARoxetine HCL 20 MG TABLET PO SCH (10:26)
[2020-10-03 10:49] LABS: CALCIUM 7.8 mg/dL (8.5-10.1)
[2020-10-03 10:50] LABS: ALBUMIN 1.9 g/dl (3.4-5.0); BLOOD UREA NITROGEN 6.2 mg/dL (7-18); MAGNESIUM 1.9 mg/dL (1.8-2.4)
[2020-10-03 10:53] LABS: CREATININE 0.4 mg/dL (0.55-1.3)
[2020-10-03 10:55] LABS: BILIRUBIN,TOTAL 0.8 mg/dL (0.2-1); TOT PROT 5.5 g/dl (6.4-8.2)
[2020-10-03] MEDS ORDERED: INSULIN (NOVOLOG) ASPART 100 UNITS/ML 10ML VIAL ONE (11:59)
[2020-10-03] MEDS ORDERED: POTASSIUM CHLORIDE ORAL LIQUID 20 MEQ/15 ML PO ONE (12:42)
[2020-10-03 13:54] LABS: ANISOCYTOSIS 0; MACROCYTOSIS 0; PLATELET ESTIMATE NORMAL
[2020-10-03] MEDS: ACETAMINOPHEN 325 MG TABLET (FP) PO PRN (14:44)
[2020-10-03] MEDS ORDERED: POTASSIUM CHLORIDE TABS 20 MEQ TABLET.ER (FP) PO ONE (15:00)
[2020-10-03] MEDS ORDERED: LISINOPRIL 10 MG TABLET PO SCH (15:00)
[2020-10-03] MEDS: ALBUTEROL SO4 2.5/IPRATROPIUM 0.5 INH SOL 3 ML VIAL.NEB. NEB PRN (20:30)
[2020-10-03] MEDS: ATORVASTATIN CA 10 MG TABLET (FP) PO SCH (21:49)
[2020-10-04] MEDS ORDERED: PIPERACILLIN/TAZOBACTAM 3.375 GM VIAL IVPB ONE ×3 (03:27→17:00)
[2020-10-04] MEDS ORDERED: DEXTROSE 5%-WATER - 50 ML IVPB ONE ×3 (03:27→17:00)
[2020-10-04] MEDS: PIPERACILLIN/TAZOB 3.375 GM 3.375 GM in DEXTROSE 5%-WATER - 50 ML IVPB SCH ×3 (03:30→17:10)
[2020-10-04] MEDS: HEPARIN NA (PORCINE) 5,000 UNITS/ML 1ML VIAL SQ SCH ×2 (06:43→15:14)
[2020-10-04] MEDS: INSULIN SLIDING SCALE (NOVOLOG) 1 VIAL SQ SCH ×3 (06:44→18:36)
[2020-10-04] MEDS: PARoxetine HCL 20 MG TABLET PO SCH (09:56)
[2020-10-04] MEDS: PANTOPRAZOLE SODIUM 40 MG VIAL IVPUSH SCH (09:56)
[2020-10-04 11:53] VITALS: PULSE 79
[2020-10-04 11:53] LABS: BASO % 0.3 % (0-2.0); EOS % 0.3 % (0-4.5); HEMATOCRIT 32.2 % (32.4-45.2); HEMOGLOBIN 10.7 GM/dL (10.7-15.3); LYMPH % 7.6 % (8-40); MCHC 33.1 g/dl (32.0-36.0); MEAN CELL VOLUME 87.5 fl (80-96); MONO % 5.2 % (3.8-10.2); NEUT % 86.6 % (42.8-82.8); PLATELET COUNT 335 K/MM3 (134-434); RBC 3.68 M/mm3 (3.60-5.2); RDW 13.9 % (11.6-15.6); WHITE BLOOD COUNT 21.9 K/mm3 (4.0-10.0)
[2020-10-04 12:20] LABS: CALCIUM 8.2 mg/dL (8.5-10.1)
[2020-10-04 12:21] LABS: ALBUMIN 1.9 g/dl (3.4-5.0)
[2020-10-04 12:22] LABS: BLOOD UREA NITROGEN 3.9 mg/dL (7-18); MAGNESIUM 1.8 mg/dL (1.8-2.4)
[2020-10-04 12:25] LABS: CREATININE 0.5 mg/dL (0.55-1.3)
[2020-10-04 12:26] LABS: BILIRUBIN,TOTAL 0.5 mg/dL (0.2-1)
[2020-10-04 12:27] LABS: TOT PROT 5.6 g/dl (6.4-8.2)
[2020-10-04 12:45] LABS: ANISOCYTOSIS 0; MACROCYTOSIS 0; PLATELET ESTIMATE NORMAL
[2020-10-04 18:30] VITALS: BP 150/74; TEMP 98.8
== END 2020-10-04 18:19 | disposition short-term general hospital (02) | DRG 439 ==
LOC: FER 00:35 → JICU 08:57 → J5S 10-01 16:13
PROVIDERS: ADMIT Surgery; ATTEND Nurse Practitioner Acute Care
DX: K85.10 Biliary acute pancreatitis without necrosis or infection (principal); Z68.41 Body mass index [BMI] 40.0-44.9, adult; K81.0 Acute cholecystitis; N17.9 Acute kidney failure, unspecified; E66.01 Morbid (severe) obesity due to excess calories; I10 Essential (primary) hypertension; E78.00 Pure hypercholesterolemia, unspecified; E11.9 Type 2 diabetes mellitus without complications; E78.5 Hyperlipidemia, unspecified; F20.9 Schizophrenia, unspecified; Z87.891 Personal history of nicotine dependence; D72.829 Elevated white blood cell count, unspecified; R00.0 Tachycardia, unspecified; F41.8 Other specified anxiety disorders; Z79.4 Long term (current) use of insulin; R06.89 Other abnormalities of breathing; K76.0 Fatty (change of) liver, not elsewhere classified; K44.9 Diaphragmatic hernia without obstruction or gangrene; N83.8 Other noninflammatory disorders of ovary, fallopian tube and broad ligament
CPT/HCPCS: 36415; 36600; 71045-TC-FY; 71046-TC-FY; 74177-TC; 76705-TC; 76830-TC; 80048; 80053; 80076; 81003; 82150; 82550; 82803; 82962; 83605; 83615; 83690; 83735; 84100; 84484; 85025; 85027; 85610; 86850; 86900; 86901; 87040; 87086; 93005; 93010; 94640; 99285-25; C9803; J1644; Q9967; U0003

== ENCOUNTER 2024-06-16 04:17 | Day surgery (SDC) | payer OTHER ==
[2024-06-14 15:01] VITALS: BMI 38.6
[2024-06-16 09:48] VITALS: TEMP 97.7
[2024-06-16 10:29] VITALS: BP 130/69; PULSE 86; RESP 19
== END 2024-06-16 10:37 | disposition home or self-care (01) ==
LOC: JASU-ENDO 04:17
PROVIDERS: ATTEND Internal Medicine Gastroenterology
PROC: 0DB78ZX Excision of Stomach, Pylorus, Via Natural or Artificial Opening Endoscopic, Diagnostic (ICD-10-PCS; 2024-06-16)
PROC: 0DB68ZX Excision of Stomach, Via Natural or Artificial Opening Endoscopic, Diagnostic (ICD-10-PCS; 2024-06-16)
PROC: 0DB48ZX Excision of Esophagogastric Junction, Via Natural or Artificial Opening Endoscopic, Diagnostic (ICD-10-PCS; 2024-06-16)
PROC: 0DB98ZX Excision of Duodenum, Via Natural or Artificial Opening Endoscopic, Diagnostic (ICD-10-PCS; principal; 2024-06-16 09:00)
DX: Z12.11 Encounter for screening for malignant neoplasm of colon (principal); D50.9 Iron deficiency anemia, unspecified; D12.8 Benign neoplasm of rectum; D12.0 Benign neoplasm of cecum; D12.2 Benign neoplasm of ascending colon; K64.8 Other hemorrhoids; K29.50 Unspecified chronic gastritis without bleeding; K44.9 Diaphragmatic hernia without obstruction or gangrene; Z86.010 Personal history of colon polyps
CPT/HCPCS: 82962; 88305-TC; 88342-TC